=== PATIENT | male | born 1935 | race Caucasian/White ===

== ENCOUNTER 2016-04-21 23:06 | Inpatient (IN) | payer OTHER, MEDICARE ==
[~2016-04-21] VITALS: Ht 134.6 cm; Wt 51.5 kg
[2016-04-21 23:07] VITALS: BP 183/92; PULSE 84; RESP 14; TEMP 98; O2SAT 98
[2016-04-22 02:22] VITALS: BP 172/89; PULSE 65; RESP 16; TEMP 98.4; O2SAT 98
[2016-04-22] MEDS ORDERED: SODIUM CHLORIDE 0.9% FLUSH 5 ML FLUSH IVF PRN (03:15)
[2016-04-22 03:34] LABS: AUTOMATED NEUTROPHIL # 5.2 TH/MM3 (1.8-7.7); BASOPHIL % 0.5 % (0.0-2.0); EOSINOPHIL # 0.2 TH/MM3 (0-0.4); EOSINOPHIL % 2.2 % (0.0-4.0); HEMATOCRIT 37.4 % (39.0-51.0); HEMO FLAGS DIFF FINAL; LYMPH % 19.8 % (9.0-44.0); LYMPHOCYTE # 1.4 TH/MM3 (1.0-4.8); MEAN CORPUSCULAR HEMOGLOBIN 29.6 PG (27.0-34.0); MEAN CORPUSCULAR HGB CONC 33.6 % (32.0-36.0); MONO % 5.7 % (0.0-8.0); NEUT % 71.8 % (16.0-70.0); PLATELET COUNT 328 TH/MM3 (150-450); RED BLOOD COUNT 4.24 MIL/MM3 (4.50-5.90); RED CELL DISTRIBUTION WIDTH 14.3 % (11.6-17.2); WHITE BLOOD COUNT 7.3 TH/MM3 (4.0-11.0)
--- NOTE | 2016-04-22 03:59 | RADRPT ---
EXAM DATE/TIME: 04/22/2016 03:10 [facility] COMPARISON: No previous studies available for comparison. INDICATIONS : Altered mental status. RADIATION DOSE: 56.35 CTDIvol (mGy) MEDICAL HISTORY : Non-responsive. SURGICAL HISTORY : Abdominal aortic aneurysm repair. ENCOUNTER: Initial ACUITY: 1 day PAIN SCALE: Non-responsive LOCATION: cranial TECHNIQUE: Multiple contiguous axial images were obtained of the head. Using automated exposure control and adj ustment of the mA and/or kV according to patient size, radiation dose was kept as low as reasonably a chievable to obtain optimal diagnostic quality images. FINDINGS: Serpiginous gyriform density in the occipital region this may be calcification or petechial hemorrhag e, the former favored. There is patchy moderate diminished attenuation in periventricular and subcort ical white matter. 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 There is no evidence of intracranial mass. There is nothing to suggest acute infarction. The ventricles are symmetric and normal. There is a minimally displaced base of nasal bone fracture which may nonetheless relatively acute. Co rrelation recommended. Sinuses and mastoids are clear. CONCLUSION: Gyriform density in the occipital regions is likely calcification associated with some type of prior insult. Petechial hemorrhage not entirely excluded. Advanced chronic appearing ischemic changes in th e white matter. Trey Francisco MD on April 22, 2016 at 3:53 Board Certified Radiologist. This report was verified electronically.
[2016-04-22 04:00] VITALS: BP 167/83; PULSE 67; RESP 16; O2SAT 98
--- NOTE | 2016-04-22 04:00 | RADRPT ---
EXAM DATE/TIME: 04/22/2016 03:30 [facility] COMPARISON: No previous studies available for comparison. INDICATIONS : Shortness of breath. MEDICAL HISTORY : Unobtainable. SURGICAL HISTORY : Unobtainable. ENCOUNTER: Initial ACUITY: 1 day PAIN SCORE: Non-responsive. LOCATION: Bilateral chest FINDINGS: A single view of the chest demonstrates the lungs to be symmetrically aerated without evidence of mas s, infiltrate or effusion. The cardiomediastinal contours are unremarkable. Osseous structures are intact. CONCLUSION: No acute disease. Trey Francisco MD on April 22, 2016 at 3:58 Board Certified Radiologist. This report was verified electronically.
[2016-04-22 04:03] LABS: ALT (GPT) 30 U/L (12-78); ANION GAP 9 MEQ/L (5-15); AST (GOT) 16 U/L (15-37); BICARBONATE 26.5 MEQ/L (21.0-32.0); BLOOD UREA NITROGEN 29 MG/DL (7-18); CHLORIDE 102 MEQ/L (98-107); GLOMERULAR FILTRATION RATE 52 ML/MIN (>89); POTASSIUM 4.4 MEQ/L (3.5-5.1); SODIUM (NA) 137 MEQ/L (136-145)
[2016-04-22 04:12] LABS: ALKALINE PHOSPHATASE 74 U/L (45-117); TOTAL BILIRUBIN ADULT 0.3 MG/DL (0.2-1.0)
[2016-04-22 04:14] LABS: ACETAMINOPHEN LESS THAN 2.0 MCG/ML (10.0-30.0)
[2016-04-22 05:03] VITALS: RESP 16; O2SAT 99
[2016-04-22 05:20] LABS: BLOOD, URINE NEG (NEG); GLUCOSE,URINE NEG (NEG); HYALINE CAST, URINE 1 /lpf (RARE); KETONE, URINE NEG (NEG); NITRITE,URINE NEG (NEG); PH, URINE 6.5 (5.0-8.5); URINE COLOR LIGHT-YELLOW (YELLW/STRAW)
[2016-04-22 05:27] LABS: AMPHETAMINE, URINE NEG (NEG); BARBITURATES, URINE NEG (NEG); COCAINE, URINE NEG (NEG)
[2016-04-22 05:34] LABS: COMMENT (UR) CATH-CULT NOT IND; CULTURE IF INDICATED CATH CULTURE NOT IND
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
[2016-04-22 09:15] VITALS: BP 153/67; PULSE 80; RESP 16; TEMP 98; O2SAT 98
[2016-04-22] MEDS ORDERED: diphenhydrAMINE HCL 50 MG CAP PO PRN (14:00)
[2016-04-22] MEDS ORDERED: hydrOXYzine HCL 50 MG TAB PO PRN (14:00)
[2016-04-22] MEDS ORDERED: ACETAMINOPHEN 325 MG TAB PO PRN (14:00)
[2016-04-22] MEDS ORDERED: MAGNESIUM HYDROXIDE SUSP 30 ML CUP PO PRN (14:00)
[2016-04-22] MEDS ORDERED: ALUMINUM/MAGNESIUM/SIMETH 30 ML CUP PO PRN (14:00)
--- NOTE | 2016-04-22 14:10 | PD ---
Data Data Last Documented VS Vital Signs Date Time Temp Pulse Resp B/P Pulse Ox O2 Delivery O2 Flow Rate FiO2 04/22/16 09:15 98.0 80 16 153/67 98 Room Air Orders Electrocardiogram (04/22/16 03:03) Ammonia (04/22/16 03:03) Complete Blood Count With Diff (04/22/16 03:03) Comprehensive Metabolic Panel (04/22/16 03:03) Troponin I (04/22/16 03:03) Thyroid Stimulating Hormone (04/22/16 03:03) Urinalysis - C+S If Indicated (04/22/16 03:03) Chest, Single Ap (04/22/16 03:03) Ct Brain W/O Iv Contrast(Rout) (04/22/16 03:03) Blood Glucose (04/22/16 03:03) Ecg Monitoring (04/22/16 03:03) Iv Access Insert/Monitor (04/22/16 03:03) Oximetry (04/22/16 03:03) Sodium Chloride 0.9% Flush (Ns Flush) (04/22/16 03:15) Drug Screen, Random Urine (04/22/16 03:03) Alcohol (Ethanol) (04/22/16 03:03) Salicylates (Aspirin) (04/22/16 03:03) Tylenol (Acetaminophen) (04/22/16 03:03) Cath For Specimen (04/22/16 04:15) Diet Regular Basic (04/22/16 Lunch) Admit To Inpatient Psych (04/22/16 ) Code Status (04/22/16 13:53) Vital Signs (Adult) SHIN.Q12H.E (04/22/16 13:53) Activity Oob Ad Natasha (04/22/16 13:53) Level Of Observation (Psych) (04/22/16 13:53) Diphenhydramine (Benadryl) (04/22/16 14:00) Acetaminophen (Tylenol) (04/22/16 14:00) Magnesium Hydroxide Liq (Milk Of Magnesi (04/22/16 14:00) Al-Mag Hy-Si 40-40-4 Mg/Ml Liq (Mag-Al P (04/22/16 14:00) Hydroxyzine Hcl (Atarax) (04/22/16 14:00) Pt Request For Service (04/22/16 13:53) Consult Hospitalist (04/22/16 ) Consult Psychiatry (04/22/16 ) ^ Other Nursing Orders (04/22/16 13:58) Labs Laboratory Tests Test 04/22/16 04/22/16 04/22/16 02:50 03:25 05:00 White Blood Count 7.3 TH/MM3 Red Blood Count 4.24 MIL/MM3 Hemoglobin 12.5 GM/DL Hematocrit 37.4 % Mean Corpuscular Volume 88.0 FL Mean Corpuscular Hemoglobin 29.6 PG Mean Corpuscular Hemoglobin 33.6 % Concent Red Cell Distribution Width 14.3 % Platelet Count 328 TH/MM3 Mean Platelet Volume 8.4 FL Neutrophils (%) (Auto) 71.8 % Lymphocytes (%) (Auto) 19.8 % Monocytes (%) (Auto) 5.7 % Eosinophils (%) (Auto) 2.2 % Basophils (%) (Auto) 0.5 % Neutrophils # (Auto) 5.2 TH/MM3 Lymphocytes # (Auto) 1.4 TH/MM3 Monocytes # (Auto) 0.4 TH/MM3 Eosinophils # (Auto) 0.2 TH/MM3 Basophils # (Auto) 0.0 TH/MM3 CBC Comment DIFF FINAL Differential Comment Sodium Level 137 MEQ/L Potassium Level 4.4 MEQ/L Chloride Level 102 MEQ/L Carbon Dioxide Level 26.5 MEQ/L Anion Gap 9 MEQ/L Blood Urea Nitrogen 29 MG/DL Creatinine 1.33 MG/DL Estimat Glomerular Filtration 52 ML/MIN Rate Random Glucose 95 MG/DL Calcium Level 9.0 MG/DL Total Bilirubin 0.3 MG/DL Aspartate Amino Transf 16 U/L (AST/SGOT) Alanine Aminotransferase 30 U/L (ALT/SGPT) Alkaline Phosphatase 74 U/L Troponin I LESS THAN 0.02 NG/ML Total Protein 7.0 GM/DL Albumin 3.1 GM/DL Thyroid Stimulating Hormone 2.960 uIU/ML 3rd Gen Salicylates Level LESS THAN 1.7 MG/DL Acetaminophen Level LESS THAN 2.0 MCG/ML Ethyl Alcohol Level LESS THAN 3 MG/DL Ammonia LESS THAN 10 MCMOL/L Urine Color LIGHT-YELLOW Urine Turbidity CLEAR Urine pH 6.5 Urine Specific [place] 1.012 Urine Protein NEG mg/dL Urine Glucose (UA) NEG mg/dL Urine Ketones NEG mg/dL Urine Occult Blood NEG Urine Nitrite NEG Urine Bilirubin NEG Urine Urobilinogen LESS THAN 2.0 MG/DL Urine Leukocyte Esterase NEG Urine RBC LESS THAN 1 /hpf Urine WBC 1 /hpf Urine Hyaline Casts 1 /lpf Microscopic Urinalysis Comment CATH-CULT NOT IND Urine Opiates Screen NEG Urine Barbiturates Screen NEG Urine Amphetamines Screen NEG Urine Benzodiazepines Screen NEG Urine Cocaine Screen NEG Urine Cannabinoids Screen NEG MDM Supervised Visit with [place]: No Narrative Course Patient was under a Chadwick act for aggressive behavior with his in history dementia. Initial workup revealed jar form density now simple region is likely calcification but cannot completely exclude hemorrhage. The overnight doctor spoke with Dr. Sawyer with neurosurgery who recommended MRI to exclude unlikely hemorrhage. MRI is been pending and difficult complete history form. I personally spoke with the , and went over the CT findings. She states that something similar was seen in [facility] again they thought was calcifications. Is able to complete the MRI history form. At that point patient was refusing MRI. I think it's unlikely to be of benefit to the patient, not working on a sedation with take to get an appropriate study, not worth the risks to the patient at this point. I canceled the MRI, patient is medically clear for psychiatric evaluation. Scripts Unable to Obtain Active Prescriptions or Reported Meds Lonnie Ye MD Apr 22, 2016 14:10
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
[2016-04-22 16:03] VITALS: BP 162/88; PULSE 90; RESP 14; TEMP 98.4; O2SAT 98
[2016-04-22] MEDS ORDERED: SODIUM CHLOR 0.9% 1000 ML INJ 1,000 ML IV ONE (17:45)
--- NOTE | 2016-04-22 18:17 | EKG ---
Date Performed: 04/22/2016 Time Performed: 04:57:24 PTAGE: 80 years EKG: Sinus rhythm MARKED LEFT AXIS DEVIATION ANTEROSEPTAL MYOCARDIAL INFARCTION ABNORMAL ECG NO PREVIOUS TRACING DOCTOR: Denny Emerson Interpretating Date/Time 04/22/2016 18:13:25
[2016-04-22 22:00] VITALS: BP 155/82; PULSE 85; RESP 18; O2SAT 97
[2016-04-23 03:00] VITALS: BP 134/78; PULSE 82; RESP 18; O2SAT 97
[2016-04-23 06:38] VITALS: BP 145/78; PULSE 88; RESP 16; O2SAT 98
[2016-04-23 08:43] VITALS: BP 141/86; PULSE 79; RESP 18; O2SAT 100
[2016-04-23 09:20] VITALS: BP 157/81; PULSE 90; RESP 16; O2SAT 95
[2016-04-23 14:01] LABS: AUTOMATED NEUTROPHIL # 6.8 TH/MM3 (1.8-7.7); BASOPHIL # 0.3 TH/MM3 (0-0.2); BASOPHIL % 3.2 % (0.0-2.0); EOSINOPHIL # 0.1 TH/MM3 (0-0.4); EOSINOPHIL % 1.2 % (0.0-4.0); HEMATOCRIT 40.7 % (39.0-51.0); HEMO FLAGS DIFF FINAL; LYMPH % 13.1 % (9.0-44.0); LYMPHOCYTE # 1.1 TH/MM3 (1.0-4.8); MEAN CELL VOLUME 88.4 FL (80.0-100.0); MEAN CORPUSCULAR HGB CONC 33.9 % (32.0-36.0); MONO % 4.5 % (0.0-8.0); PLATELET COUNT 408 TH/MM3 (150-450); RED CELL DISTRIBUTION WIDTH 14.3 % (11.6-17.2); WHITE BLOOD COUNT 8.6 TH/MM3 (4.0-11.0)
[2016-04-23 14:26] LABS: ALKALINE PHOSPHATASE 69 U/L (45-117); ALT (GPT) 27 U/L (12-78); ANION GAP 11 MEQ/L (5-15); AST (GOT) 15 U/L (15-37); BICARBONATE 30.8 MEQ/L (21.0-32.0); BLOOD UREA NITROGEN 18 MG/DL (7-18); CHLORIDE 98 MEQ/L (98-107); GLOMERULAR FILTRATION RATE 46 ML/MIN (>89); POTASSIUM 3.9 MEQ/L (3.5-5.1); SODIUM (NA) 140 MEQ/L (136-145); TOTAL BILIRUBIN ADULT 0.5 MG/DL (0.2-1.0)
[2016-04-23] MEDS ORDERED: cloNIDine HCL 0.1 MG TAB PO PRN (17:45)
[2016-04-23] MEDS ORDERED: TAMSULOSIN HCL 0.4 MG CAP PO ONE (17:45)
[2016-04-23 18:00] VITALS: BP 156/79; PULSE 91; RESP 18; TEMP 97.5; O2SAT 97
--- NOTE | 2016-04-23 18:02 | PD.CONS ---
HPI Service [facility] Consult Requested By Primary Care Physician Unknown Diagnoses: History of Present Illness 80-year-old male with unknown past medical history, apparently taken to [facility] because he was difficult to control at home, and subsequently sent to [place]. Patient seen in psychiatry [facility]. History is severely limited due to disorganized and distractible speech. For what it is worth, patient denies a long list of symptoms, including pain, shortness of breath, headache, nausea, vomiting, constipation, diarrhea. When asked about difficulty urinating, he offers his only non-negative response saying something about making his "unit work". He does denies taking any medications at all. Called contact number, which did not answer, and did not go into voicemail. Review of Systems Full review of systems performed, and patient appears to deny, with the exception of questionable nonnegative response regarding difficulty urinating. Past Family Social History Allergies: Coded Allergies: No Known Allergies (Unverified , 04/21/16) Past Medical History Difficult history. Patient denies any past medical history. Past Surgical History Difficult history. Patient denies any past surgical history. Reported Medications Unknown at this time. Family History Attempted, but patient also denies family history.. Social History Patient emphatically denies smoking, drinking alcohol, drugs. He appears upset that I asked. Physical Exam Vital Signs Vital Signs Date Time Temp Pulse Resp B/P Pulse Ox O2 Delivery O2 Flow Rate FiO2 04/23/16 09:20 90 16 157/81 95 04/23/16 08:43 79 18 141/86 100 Room Air 04/23/16 06:38 88 16 145/78 98 04/23/16 03:00 82 18 134/78 97 Room Air 04/22/16 22:00 85 18 155/82 97 Room Air Physical Exam GENERAL: This is a well-nourished, well-developed patient, in no apparent distress. Walking around in psychiatry unit. He appears alert, pleasant on my exam, however completely disoriented. SKIN: No rashes, ecchymoses or lesions. Cool and dry. Patient does have what appears to be a scab versus small precancerous lesion over the right neck, roughly 3 mm in diameter. No surrounding erythema. HEAD: Atraumatic. Normocephalic. No temporal or scalp tenderness. EYES: Pupils equal round and reactive. Extraocular motions intact. No scleral icterus. No injection or drainage. ENT: Nose without bleeding, purulent drainage or septal hematoma. Throat without erythema, tonsillar hypertrophy or exudate. Uvula midline. Airway patent. NECK: Trachea midline. No JVD or lymphadenopathy. Supple, nontender, no meningeal signs. CARDIOVASCULAR: Regular rate and rhythm without murmurs, gallops, or rubs. RESPIRATORY: Clear to auscultation. Breath sounds equal bilaterally. No wheezes , rales, or rhonchi. GASTROINTESTINAL: Abdomen soft, non-tender, nondistended. No hepato-splenomegaly , or palpable masses. No guarding. MUSCULOSKELETAL: Extremities without clubbing, cyanosis, or edema. No joint tenderness, effusion, or edema noted. No calf tenderness. Negative Homans sign bilaterally. NEUROLOGICAL: Awake and alert. Cranial nerves II through XII intact. Motor and sensory grossly within normal limits. Five out of 5 muscle strength in all muscle groups. Normal speech. Laboratory Laboratory Tests Test 04/23/16 13:45 White Blood Count 8.6 Red Blood Count 4.60 Hemoglobin 13.8 Hematocrit 40.7 Mean Corpuscular Volume 88.4 Mean Corpuscular Hemoglobin 30.0 Mean Corpuscular Hemoglobin 33.9 Concent Red Cell Distribution Width 14.3 Platelet Count 408 Mean Platelet Volume 8.0 Neutrophils (%) (Auto) 78.0 Lymphocytes (%) (Auto) 13.1 Monocytes (%) (Auto) 4.5 Eosinophils (%) (Auto) 1.2 Basophils (%) (Auto) 3.2 Neutrophils # (Auto) 6.8 Lymphocytes # (Auto) 1.1 Monocytes # (Auto) 0.4 Eosinophils # (Auto) 0.1 Basophils # (Auto) 0.3 CBC Comment DIFF FINAL Differential Comment Sodium Level 140 Potassium Level 3.9 Chloride Level 98 Carbon Dioxide Level 30.8 Anion Gap 11 Blood Urea Nitrogen 18 Creatinine 1.49 Estimat Glomerular Filtration 46 Rate Random Glucose 149 Calcium Level 9.0 Total Bilirubin 0.5 Aspartate Amino Transf 15 (AST/SGOT) Alanine Aminotransferase 27 (ALT/SGPT) Alkaline Phosphatase 69 Total Protein 7.9 Albumin 3.4 Result Diagram: 04/23/16 1345 04/23/16 1345 Imaging Last Impressions Head CT 04/22/16 0303 Signed Impressions: Service Date/Time: Friday, April 22, 2016 03:10 - CONCLUSION: Gyriform density in the occipital regions is likely calcification associated with some type of prior insult. Petechial hemorrhage not entirely excluded. Advanced chronic appearing ischemic changes in the white matter. Trey Francisco MD Chest X-Ray 04/22/16 0303 Signed Impressions: Service Date/Time: Friday, April 22, 2016 03:30 - CONCLUSION: No acute disease. Trey Francisco MD Assessment and Plan Assessment and Plan //Psychosis. //Likely with degree of dementia. -Unable to contact family CT head with what appeared to be chronic changes. No history of, or indication of, recent head trauma. -Management as per psychiatry. //Hypertensive. Systolic blood pressures in the 140s to 160s. -Unknown if patient is on blood pressure medications at home. -Added clonidine as needed for systolic blood pressures over 180. -Continue to monitor blood pressure. //Possible acute kidney injury -Creatinine 1.3 on admission, subsequently up to 1.5 on 04/23. -Unknown baseline creatinine -BUN/creatinine ratio is typical of obstruction. Patient gave history that could be indicative of obstruction. -Urinalysis benign. -04/23. Start tamsulosin. -Fena pending -Encourage by mouth fluids. Continue to monitor. //Possible urinary retention. -Patient's history is very difficult to understand. - 04/23 Start Flomax. -Renal ultrasound pending. //possible 3x3mm Scab over the right neck. //Possibility of pre-cancerous skin lesion right neck. -Patient without any insight. We'll continue to monitor. No signs of infection. May need to be followed as outpatient. Prophylaxis. Patient is ambulatory. Discussed Condition With Nurse. Cedric Truong MD Apr 23, 2016 18:02
--- NOTE | 2016-04-23 21:49 | PD.CONS ---
Provisional Diagnosis Admission Date Apr 22, 2016 at 13:58 [place] I. Dementia Alzheimer's type with disturbances of behavior G 30.8 History of Present Illness Service Psychiatry Consult Requested By Psychiatry Reason for Consult 2nd opinion Primary Care Physician Unknown HPI Pt is a 80YOWM admitted to [facility] under a BA by the police. Pt is unable to provide any meaningful hx. He reports that the year is 1925 and the president is Vince. He requires close supervision for safety. Chart reviewed. Review of Systems Psychiatric: COMPLAINS OF: Confusion Past Family Social History Coded Allergies: No Known Allergies (Unverified , 04/21/16) Past Medical History dementia Unable to Obtain Active Prescriptions or Reported Meds Current Medications Medications (Trade) Dose Ordered Sig/Kush Route Start Time Stop Time Status Last Admin (NS Flush) 2 ml UNSCH PRN IVF 04/22/16 03:15 (Benadryl) 50 mg HS PRN PO 04/22/16 14:00 Hold (Tylenol) 650 mg Q4H PRN PO 04/22/16 14:00 (Milk Of Magnesia Liq) 30 ml DAILY PRN PO 04/22/16 14:00 (Mag-Al Plus Susp Liq) 30 ml Q6H PRN PO 04/22/16 14:00 (Atarax) 50 mg Q6H PRN PO 04/22/16 14:00 Hold (Catapres) 0.1 mg Q6H PRN PO 04/23/16 17:45 (Flomax) 0.4 mg DAILY PO 04/24/16 09:00 Family History unknown Social History Patient's Strengths (min. 2) Patient verbal, access to healthcare Physical Exam Vital Signs Vital Signs Date Time Temp Pulse Resp B/P Pulse Ox O2 Delivery O2 Flow Rate FiO2 04/23/16 18:00 97.5 91 18 156/79 97 04/23/16 08:43 Room Air I/O 04/22/16 04/22/16 04/23/16 08:00 16:00 00:00 Intake Total 300 ml Balance 300 ml Mental Status Examination Speech: Hesitant, Circumstantial, Tangential, Other (markedly disorganized) Orientation: Person (vaguely) Memory: Impaired (describe) Thought Process: Other Thought Content: Other (markedly disorganized) Hallucination Type: None Attention and Concentration: Easily Distracted Suicidal Ideation: No Previous Suicide Attempts: No Homicidal Ideation: No (patient did attack his wheelchair) Previous Homicide Attempts: No Insight: Poor Judgement: Poor Affect: Other (slight decreased range and intensity) Mood: Euthymic, Irritable Motor Activity: Normal gait Assessment & Plan Problem List: (1) Dementia of Alzheimer's type with behavioral disturbance ICD Code: G30.8 Assessment & Plan I agree that pt meets BA criteria due to risk of self-neglect. Estimated LOS: days Request HC Surrog/Guard Advoc?: Yes Problem Qualifiers (1) Dementia of Alzheimer's type with behavioral disturbance: Qualified Code: G30.8 - Alzheimer's disease of other onset with behavioral disturbance Latanya Baum MD Apr 23, 2016 21:49
[2016-04-24] MEDS: TAMSULOSIN HCL 0.4 MG CAP PO SCH (08:23)
--- NOTE | 2016-04-24 09:12 | RADRPT ---
EXAM DATE/TIME: 04/24/2016 08:29 [place] COMPARISON: No previous studies available for comparison. INDICATIONS : Increased BUN/creatinine. MEDICAL HISTORY : Altered mental status. Confusion. SURGICAL HISTORY : Unable to obtain. ENCOUNTER: Initial ACUITY: 1 day PAIN SCORE: 0/10 LOCATION: Bilateral flank MEASUREMENTS: RIGHT KIDNEY: 8.8 x 3.6 x 5.0 cm LEFT KIDNEY: 9.8 x 4.3 x 5.3 cm FINDINGS: RIGHT KIDNEY: Renal cortex is normal in thickness and echotexture. No hydronephrosis, stone, or mass. There is an anechoic avascular lesion at the lower pole renal sinus measuring 13 mm. LEFT KIDNEY: Renal cortex is normal in thickness and echotexture. No hydronephrosis, stone, or mass. BLADDER: Within normal limits given the degree of distension. The prostate gland is enlarged measuring 3.9 x 4.0 x 4.0 cm. CONCLUSION: 1. Normal ultrasound appearance of the kidneys. There is a simple lower pole renal sinus cyst measuri ng 13 mm. 2. Mild prostatomegaly. Trey Vee MD on April 24, 2016 at 9:09 Board Certified Radiologist. This report was verified electronically.
--- NOTE | 2016-04-24 09:57 | HHI.PYPN ---
Subjective Remarks Patient was seen and discussed with the staff readiness officer. Reportedly patient has been pleasantly confused and talking about things that doesn't make any sense. He is unable to provide any meaningful history at this time. But he seems been a worried about his granddaughter. Patient admitted to being forgetful but denies any active auditory or visual hallucinations. Denies any suicidal and/ or homicidal ideation intentions or plan. No behavior or management problem reported. Continue with the same treatment. Patient is also worried about his and he became somewhat sad and tearful when he was talking about her Review of Systems Except as stated in HPI: all other systems reviewed are Neg Objective Alert: Yes [place]: Person, Place Mood: Depressed, Other (worried about and grandchildren) Affect: Labile Memory Intact: Recent (impaired), Remote (impaired) Hallucinations: Other (patient denies any active auditory or visual hallucinations) Delusions: Yes Delusion Type: Paranoid Suicidal: Ideation (denies any suicidal ideation intentions or plan) Homicidal: Ideation (denies any homicidal ideation intentions or plan) Insight/Judgement Limited Labs Test 04/23/16 13:45 White Blood Count 8.6 TH/MM3 Red Blood Count 4.60 MIL/MM3 Hemoglobin 13.8 GM/DL Hematocrit 40.7 % Mean Corpuscular Volume 88.4 FL Mean Corpuscular Hemoglobin 30.0 PG Mean Corpuscular Hemoglobin 33.9 % Concent Red Cell Distribution Width 14.3 % Platelet Count 408 TH/MM3 Mean Platelet Volume 8.0 FL Neutrophils (%) (Auto) 78.0 % Lymphocytes (%) (Auto) 13.1 % Monocytes (%) (Auto) 4.5 % Eosinophils (%) (Auto) 1.2 % Basophils (%) (Auto) 3.2 % Neutrophils # (Auto) 6.8 TH/MM3 Lymphocytes # (Auto) 1.1 TH/MM3 Monocytes # (Auto) 0.4 TH/MM3 Eosinophils # (Auto) 0.1 TH/MM3 Basophils # (Auto) 0.3 TH/MM3 CBC Comment DIFF FINAL Differential Comment Sodium Level 140 MEQ/L Potassium Level 3.9 MEQ/L Chloride Level 98 MEQ/L Carbon Dioxide Level 30.8 MEQ/L Anion Gap 11 MEQ/L Blood Urea Nitrogen 18 MG/DL Creatinine 1.49 MG/DL Estimat Glomerular Filtration 46 ML/MIN Rate Random Glucose 149 MG/DL Calcium Level 9.0 MG/DL Total Bilirubin 0.5 MG/DL Aspartate Amino Transf 15 U/L (AST/SGOT) Alanine Aminotransferase 27 U/L (ALT/SGPT) Alkaline Phosphatase 69 U/L Total Protein 7.9 GM/DL Albumin 3.4 GM/DL Vitals/IOs Vital Signs Date Time Temp Pulse Resp B/P Pulse Ox O2 Delivery O2 Flow Rate FiO2 04/23/16 18:00 97.5 91 18 156/79 97 04/23/16 08:43 Room Air Assessment & Plan Problem List: (1) Dementia of Alzheimer's type with behavioral disturbance ICD Code: G30.8 Assessment & Plan Estimated LOS: days Justification for Cont. Inpt. Risk of decompensation at a lower level of care Request HC Surrog/Guard Advoc?: Yes Problem Qualifiers (1) Dementia of Alzheimer's type with behavioral disturbance: Qualified Code: G30.8 - Alzheimer's disease of other onset with behavioral disturbance Titi Barraza MD Apr 24, 2016 09:57
[2016-04-24] MEDS: DONEPEZIL HCL 5 MG TAB PO SCH (10:45)
[2016-04-24] MEDS ORDERED: METO25TA3 PO (15:47)
[2016-04-24] MEDS ORDERED: BENA20TA PO (15:47)
[2016-04-24] MEDS ORDERED: ASPI1TAB69 PO (15:47)
[2016-04-24] MEDS ORDERED: GALA8TAB PO (15:47)
[2016-04-24] MEDS ORDERED: QUET1TAB7 PO (15:47)
[2016-04-24] MEDS: QUEtiapine FUMARATE 100 MG TAB PO SCH (17:34)
[2016-04-24 19:52] VITALS: BP 149/79; PULSE 81; RESP 20; TEMP 97.8; O2SAT 99
[2016-04-25 06:45] VITALS: BP 125/59; PULSE 72; RESP 16; TEMP 98.2; O2SAT 95
[2016-04-25] MEDS: DONEPEZIL HCL 5 MG TAB PO SCH (09:19)
[2016-04-25] MEDS: TAMSULOSIN HCL 0.4 MG CAP PO SCH (09:19)
[2016-04-25] MEDS: QUEtiapine FUMARATE 100 MG TAB PO SCH ×2 (09:19→17:19)
--- NOTE | 2016-04-25 10:33 | HHI.PYPN ---
Subjective Remarks Patient was seen and discussed with the bell staff. Patient remains somewhat confused and worried about his family his and his granddaughter but could be reassured. He is pleasantly confused no behavior or management problem reported. Continue with the same treatment. Denied any suicidal ideation intentions or plan Review of Systems Except as stated in HPI: all other systems reviewed are Neg Psychiatric: COMPLAINS OF: Confusion, Mood changes, Depression Objective Alert: Yes [place]: Person, Place Mood: Depressed, Other (worried about and grandchildren) Affect: Labile Memory Intact: Recent (impaired), Remote (impaired) Hallucinations: Other (patient denies any active auditory or visual hallucinations) Delusions: Yes Delusion Type: Paranoid Suicidal: Ideation (denies any suicidal ideation intentions or plan) Homicidal: Ideation (denies any homicidal ideation intentions or plan) Insight/Judgement Limited Vitals/IOs Vital Signs Date Time Temp Pulse Resp B/P Pulse Ox O2 Delivery O2 Flow Rate FiO2 04/25/16 06:45 98.2 72 16 125/59 95 04/23/16 08:43 Room Air Assessment & Plan Problem List: (1) Dementia of Alzheimer's type with behavioral disturbance ICD Code: G30.8 Assessment & Plan Estimated LOS: days Justification for Cont. Inpt. Risk of decompensation and monitoring of the medication Request HC Surrog/Guard Advoc?: Yes Problem Qualifiers (1) Dementia of Alzheimer's type with behavioral disturbance: Qualified Code: G30.8 - Alzheimer's disease of other onset with behavioral disturbance Titi Barraza MD Apr 25, 2016 10:33
--- NOTE | 2016-04-25 17:12 | HHI.PR ---
Subjective Remarks Follow up HTN and MATT versus CKD. Patient seen ambulating about psych unit, confused but in no acute distress. Patient offers no medical complaints asking when he can go home. Denies SOB, chest pain, N/V/D/C. fevers or chills. Objective Vitals Vital Signs Date Time Temp Pulse Resp B/P Pulse Ox O2 Delivery O2 Flow Rate FiO2 04/25/16 06:45 98.2 72 16 125/59 95 04/24/16 19:52 97.8 81 20 149/79 99 Result Diagram: 04/23/16 1345 04/23/16 1345 Imaging Last Impressions Renal Ultrasound 04/24/16 0000 Signed Impressions: Service Date/Time: Sunday, April 24, 2016 08:29 - CONCLUSION: 1. Normal ultrasound appearance of the kidneys. There is a simple lower pole renal sinus cyst measuring 13 mm. 2. Mild prostatomegaly. Trey Vee MD Head CT 04/22/16302 Signed Impressions: Service Date/Time: Friday, April 22, 2016 03:10 - CONCLUSION: Gyriform density in the occipital regions is likely calcification associated with some type of prior insult. Petechial hemorrhage not entirely excluded. Advanced chronic appearing ischemic changes in the white matter. Trey Francisco MD Chest X-Ray 04/22/16302 Signed Impressions: Service Date/Time: Friday, April 22, 2016 03:30 - CONCLUSION: No acute disease. Trey Francisco MD Objective Remarks GENERAL: This is a well-nourished, well-developed patient, in no apparent distress. Walking around in psychiatry unit. He appears alert, pleasant on my exam, however confused SKIN: No rashes, ecchymoses or lesions. Cool and dry. Patient does have what appears to be a scab versus small precancerous lesion over the right neck, roughly 3 mm in diameter. No surrounding erythema. HEAD: Atraumatic. Normocephalic. No temporal or scalp tenderness. EYES: EOMI. Extraocular motions intact. No scleral icterus. No injection or drainage. CARDIOVASCULAR: Regular rate and rhythm without murmurs, gallops, or rubs. RESPIRATORY: Clear to auscultation. Breath sounds equal bilaterally. No wheezes , rales, or rhonchi. GASTROINTESTINAL: Abdomen soft, non-tender, nondistended. No hepato-splenomegaly , or palpable masses. No guarding. MUSCULOSKELETAL: Extremities without clubbing, cyanosis, or edema. No joint tenderness, effusion, or edema noted. No calf tenderness. Negative Homans sign bilaterally. NEUROLOGICAL: Awake and alert. No focal deficits. Motor and sensory grossly within normal limits. Five out of 5 muscle strength in all muscle groups. A/P Assessment and Plan //Psychosis. //Likely with degree of dementia. CT head with what appeared to be chronic changes. No history of, or indication of, recent head trauma. -Management as per psychiatry. //Hypertensive. Systolic blood pressures in the 120s to 150s. -Unknown if patient is on blood pressure medications at home. -Continue clonidine as needed for systolic blood pressures over 180. -Continue to monitor blood pressure. //Possible acute kidney injury versus CKD -Creatinine 1.3 on admission, subsequently up to 1.5 on 04/23. recheck in AM -Unknown baseline creatinine -BUN/creatinine ratio is typical of obstruction. -Urinalysis benign. -Continue tamsulosin. -Encourage by mouth fluids. Continue to monitor. -Renal ultrasound 04/24/16 Normal ultrasound appearance of the kidneys. There is a simple lower pole renal sinus cyst measuring 13 mm. 2. Mild prostatomegaly. //possible 3x3mm Scab over the right neck. //Possibility of pre-cancerous skin lesion right neck. -No signs of infection. Recommend outpatient follow up with dermatology DVT Prophylaxis. Patient is ambulatory. Discussed with patient and nursing Written by Maria De Jesus Pedraza, acting as scribe for Dr. Melo on 04/25/16 at 17: 10. All or portions of this note were transcribed by scribe [Maria De Jesus Pedraza PA-C]. I, Dr. Rajat Melo personally performed the history, physical exam, and medical decision making; and confirmed the accuracy of the information in the transcribed note. Authenticated by Dr. Rajat Melo on 04/25/16 at 1710. Maria De Jesus Pedraza Apr 25, 2016 17:12 Mima Melo DO Apr 26, 2016 00:11
[2016-04-25 19:02] VITALS: BP 129/68; PULSE 95; RESP 16; TEMP 98.7; O2SAT 98
[2016-04-26 06:24] VITALS: BP 101/57; PULSE 62; RESP 16; TEMP 97.6; O2SAT 97
[2016-04-26 08:16] LABS: BICARBONATE 26.3 MEQ/L (21.0-32.0); POTASSIUM 4.1 MEQ/L (3.5-5.1)
[2016-04-26] MEDS: TAMSULOSIN HCL 0.4 MG CAP PO SCH (08:28)
[2016-04-26] MEDS: QUEtiapine FUMARATE 100 MG TAB PO SCH ×2 (08:29→17:09)
[2016-04-26] MEDS: DONEPEZIL HCL 5 MG TAB PO SCH (08:29)
--- NOTE | 2016-04-26 14:21 | HHI.DS ---
Psychiatry Discharge Summary Inpatient Psychiatric care?: Yes Advance Directive: No Reason Not Provided: unknown advanced directives; pt confused Mental Health AdvanceDirective: No Health Care Proxy: No Admission Admission Date Apr 22, 2016 at 13:58 Admission Diagnosis: (1) Dementia of Alzheimer's type with behavioral disturbance ICD Code: G30.8 GAF Score: 40 Brief History Pt is a 80YOWM admitted to [facility] under a BA by the police. Pt is unable to provide any meaningful hx. He reports that the year is 1925 and the president is Vince. He requires close supervision for safety. Chart reviewed. Tobacco Use In Past 30 Days: Cognitive Impairment Alcohol Use: Monthly or Less Hospital Course Patient was started on supportive treatment. He participated in some of the therapeutic activity on the floor. He was pleasantly confused and repetitious in asking the same question. No behavior or management problem exhibited on the unit. His medication was adjusted he started to feel better and wanting to go back home was willing to take him home and follow-up as an outpatient with home health follow-up he was discharged patient denied any suicidal and/or homicidal ideation intentions of plan Results Blood Pressure 101 / 57 Vital Signs Date Time Temp Pulse Resp B/P Pulse Ox O2 Delivery O2 Flow Rate FiO2 04/26/16 06:24 97.6 62 16 101/57 97 04/23/16 08:43 Room Air Laboratory Tests Test 04/26/16 07:00 Blood Urea Nitrogen 22 MG/DL (7-18) Estimat Glomerular Filtration 59 ML/MIN (>89) Rate Summary of Major Lab Results Nothing significant Summary of Procedures None Imaging Last Impressions Renal Ultrasound 04/24/16 0000 Signed Impressions: Service Date/Time: Sunday, April 24, 2016 08:29 - CONCLUSION: 1. Normal ultrasound appearance of the kidneys. There is a simple lower pole renal sinus cyst measuring 13 mm. 2. Mild prostatomegaly. Trey Vee MD Head CT 04/22/16302 Signed Impressions: Service Date/Time: Friday, April 22, 2016 03:10 - CONCLUSION: Gyriform density in the occipital regions is likely calcification associated with some type of prior insult. Petechial hemorrhage not entirely excluded. Advanced chronic appearing ischemic changes in the white matter. Trey Francisco MD Chest X-Ray 04/22/16302 Signed Impressions: Service Date/Time: Friday, April 22, 2016 03:30 - CONCLUSION: No acute disease. Trey Francisco MD Pending results at discharge: No Medications # of Antipsychotic meds at D/C: 1 Appropriate >1 Antipsych meds?: 2 Approp Antipsych med options 1 - Minimum of three failed multiple trials of monotherapy. Discharge Discharge Date: Apr 26, 2016 Discharge Diagnosis: (1) Dementia of Alzheimer's type with behavioral disturbance Diagnosis: Principal ICD Code: G30.8 Mental Status Exam at Disch Patient was alert oriented 2 pleasantly confused and asking the same question over and over again. He wanted to go home. There was no behavior or aggressive behavior exhibited in the unit. He denied any suicidal and/or homicidal ideation intentions or plan. He wants to go home his also wants him to come home he denied any active auditory or visual hallucinations Pt Condition on Discharge: Stable Discharge Disposition: Discharge Home Discharge Instructions Diet Instructions: As Tolerated, No Restrictions Activities you can perform: Regular-No Restrictions Scheduled Appointment: [facility] Discharge Time <= 30 minutes Discharge/Advance Care Plan Health Problems: (1) Dementia of Alzheimer's type with behavioral disturbance Goals to promote your health * To prevent worsening of your condition and complications * To maintain your health at the optimal level Directions to meet your goals Take your medications as prescribed Follow your dietary instruction Follow activity as directed Keep your appointments as scheduled Take your immunizations and boosters as scheduled If your symptoms worsen call your PCP, if no PCP go to Urgent Care Center or Emergency Room For 11/09 questions related to your inpatient stay or results of tests pending at discharge, please contact Dr. Titi Barraza at Smoking is Dangerous to Your Health. Avoid second hand smoking Problem Qualifiers (1) Dementia of Alzheimer's type with behavioral disturbance: Qualified Code: G30.8 - Alzheimer's disease of other onset with behavioral disturbance Titi Barraza MD Apr 26, 2016 14:21
[2016-04-26] MEDS ORDERED: ARIC5TAB PO (14:23)
[2016-04-26] MEDS ORDERED: QUET1TAB8 PO (14:23)
--- NOTE | 2016-04-26 14:34 | HHI.PR ---
Blank section for building Chart reviewed creatinine improving continue to encourage by mouth fluid intake Patient appears medically stable at this point will sign off. If patient's condition changes or further assistance is needed please reconsult Recommend patient follow up with PCP after discharge (Maria De Jesus Pedraza) Maria De Jesus Pedraza Apr 26, 2016 14:34 Mima Melo DO Apr 26, 2016 23:38
[2016-04-26 18:35] VITALS: BP 140/67; PULSE 85; RESP 16; TEMP 98.4; O2SAT 99
== END 2016-04-26 18:45 | disposition home or self-care (01) | DRG 57 ==
LOC: NEPE 23:06 → NEDA 04-22 13:58 → NEDH 04-23 07:30 → H270 04-23 08:43 → H260 04-23 11:30
PROVIDERS: ADMIT Psychiatry & Neurology Psychiatry; ATTEND Psychiatry & Neurology Psychiatry
DX: G30.9 Alzheimer's disease, unspecified (principal); N17.9 Acute kidney failure, unspecified; F02.81 Dementia in other diseases classified elsewhere, unspecified severity, with behavioral disturbance; I10 Essential (primary) hypertension; R33.9 Retention of urine, unspecified; Z87.891 Personal history of nicotine dependence
CPT/HCPCS: 70450; 71010; 76775; 80048; 80053; 80307; 80320; 81001; 82140; 82570; 84300; 84443; 84484; 85025; 93005; J7030

== ENCOUNTER 2016-05-29 15:42 | Inpatient (IN) | payer OTHER, MEDICARE ==
[~2016-05-29] VITALS: Ht 134.6 cm; Wt 53.3 kg
[~2016-05-29 15:42] MED LIST: ARIC5TAB PO; ASPI1TAB69 PO; BENA20TA PO; GALA8TAB PO; METO25TA3 PO; QUET1TAB7 PO; QUET1TAB8 PO
[2016-05-29 17:01] VITALS: BP 186/96; PULSE 98; RESP 16; TEMP 98; O2SAT 99
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
[2016-05-29 18:22] LABS: AMPHETAMINE, URINE NEG (NEG); BARBITURATES, URINE NEG (NEG); COCAINE, URINE NEG (NEG)
--- NOTE | 2016-05-29 18:24 | RADRPT ---
EXAM DATE/TIME: 05/29/2016 18:00 [facility] COMPARISON: CT BRAIN W/O CONTRAST, April 22, 2016, 3:10. INDICATIONS : Altered mental status. RADIATION DOSE: 33.99 CTDIvol (mGy) MEDICAL HISTORY : Seizures. Cerebrovascular disease. Diabetes mellitus type 2. SURGICAL HISTORY : None. ENCOUNTER: Initial ACUITY: 1 day PAIN SCALE: 3/10 LOCATION: Cranial TECHNIQUE: Multiple contiguous axial images were obtained of the head. Using automated exposure control and adjustment of the mA and/or kV according to patient size, radiation dose was kept as low as reasonably achievable to obtain optimal diagnostic quality images. FINDINGS: The study is abnormal. Apparent gyriform calcifications are seen in both occipital lobe s. Chronic periventricular white matter changes are noted. There are no extra-axial fluid collection s appreciated. Posterior fossa is unremarkable. CONCLUSION: 1. Gyriform calcifications in the occipital lobes bilaterally. 2. Stable in the interval. 3. There is no evidence for an acute process. Ignacio Mercado MD FACR on May 29, 2016 at 18:15 Board Certified Radiologist. This report was verified electronically.
[2016-05-29 18:29] LABS: AUTOMATED NEUTROPHIL # 4.9 TH/MM3 (1.8-7.7); BASOPHIL # 0.1 TH/MM3 (0-0.2); BASOPHIL % 1.2 % (0.0-2.0); EOSINOPHIL % 0.2 % (0.0-4.0); HEMATOCRIT 39.8 % (39.0-51.0); HEMO FLAGS DIFF FINAL; LYMPHOCYTE # 1.5 TH/MM3 (1.0-4.8); MEAN CELL VOLUME 89.8 FL (80.0-100.0); MEAN CORPUSCULAR HEMOGLOBIN 29.8 PG (27.0-34.0); MEAN CORPUSCULAR HGB CONC 33.2 % (32.0-36.0); MONO % 7.3 % (0.0-8.0); NEUT % 70.3 % (16.0-70.0); PLATELET COUNT 247 TH/MM3 (150-450); RED BLOOD COUNT 4.43 MIL/MM3 (4.50-5.90); RED CELL DISTRIBUTION WIDTH 13.9 % (11.6-17.2)
[2016-05-29 18:50] LABS: ANION GAP 11 MEQ/L (5-15); AST (GOT) 20 U/L (15-37); BLOOD UREA NITROGEN 26 MG/DL (7-18); CHLORIDE 105 MEQ/L (98-107); GLOMERULAR FILTRATION RATE 54 ML/MIN (>89); POTASSIUM 3.9 MEQ/L (3.5-5.1); SODIUM (NA) 138 MEQ/L (136-145)
[2016-05-29 18:53] LABS: ALKALINE PHOSPHATASE 63 U/L (45-117); ALT (GPT) 14 U/L (12-78); TOTAL BILIRUBIN ADULT 0.6 MG/DL (0.2-1.0)
[2016-05-29 19:23] LABS: BLOOD, URINE NEG (NEG); COMMENT (UR) CULT NOT INDICATED; CULTURE IF INDICATED CULT NOT INDICATED; GLUCOSE,URINE NEG (NEG); HYALINE CAST, URINE 7 /lpf (RARE); KETONE, URINE TRACE mg/dL (NEG); MUCUS URINE FEW /lpf (OCC); NITRITE,URINE NEG (NEG); SQUAMOUS EPITHELIAL CELL URINE <1 /hpf (0-5); URINE COLOR YELLOW (YELLW/STRAW)
[2016-05-29 19:27] LABS: ACETAMINOPHEN LESS THAN 2.0 MCG/ML (10.0-30.0)
[2016-05-29] MEDS ORDERED: LORazepam 2 MG/ML VIAL IV PUSH ONE (19:45)
[2016-05-29] MEDS ORDERED: SODIUM CHLORID 0.9% 500 ML INJ 500 ML IV ONE (19:45)
[2016-05-29] MEDS ORDERED: ACETAMINOPHEN 500 MG CPLT PO ONE (19:45)
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
[2016-05-29 21:11] VITALS: BP 153/73; PULSE 81; RESP 18; O2SAT 95
[2016-05-29 22:00] VITALS: BP 184/94; PULSE 88; RESP 18; O2SAT 96
[2016-05-29] MEDS ORDERED: ALUMINUM/MAGNESIUM/SIMETH 30 ML CUP PO PRN (22:45)
[2016-05-29] MEDS ORDERED: diphenhydrAMINE HCL 50 MG/ML VIAL IM PRN (22:45)
[2016-05-29] MEDS ORDERED: MAGNESIUM HYDROXIDE SUSP 30 ML CUP PO PRN (22:45)
[2016-05-29] MEDS ORDERED: diphenhydrAMINE HCL 50 MG CAP PO PRN ×2 (22:45)
[2016-05-29] MEDS ORDERED: HALOPERIDOL LACTATE 5 MG/ML AMP IM PRN (22:45)
[2016-05-29] MEDS ORDERED: ACETAMINOPHEN 325 MG TAB PO PRN (22:45)
[2016-05-30] MEDS ORDERED: METOPROLOL TARTRATE 25 MG TAB PO ONE (00:15)
[2016-05-30 00:20] VITALS: BP 185/95; PULSE 80; RESP 18; O2SAT 98
[2016-05-30 00:40] VITALS: BP 183/90; PULSE 72; RESP 18; O2SAT 97; O2SAT 99
[2016-05-30] MEDS: hydrOXYzine HCL 50 MG TAB PO PRN ×2 (03:41→13:50)
[2016-05-30 06:00] VITALS: BP 145/71; PULSE 67; RESP 18; TEMP 96.8; O2SAT 97
[2016-05-30 07:34] LABS: ANION GAP 10 MEQ/L (5-15); BICARBONATE 26.8 MEQ/L (21.0-32.0); BLOOD UREA NITROGEN 24 MG/DL (7-18); CHLORIDE 99 MEQ/L (98-107); GLOMERULAR FILTRATION RATE 59 ML/MIN (>89); HDL CHOLESTEROL 61.6 MG/DL (40.0-60.0); LDL CHOLESTEROL 177 MG/DL (0-99); POTASSIUM 3.5 MEQ/L (3.5-5.1); SODIUM (NA) 136 MEQ/L (136-145)
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
[2016-05-30] MEDS: REMOVE OLD PATCH T-DERMAL SCH (09:00)
[2016-05-30] MEDS ORDERED: NICOTINE 21 MG/24 HR PATCH T-DERMAL SCH (09:00)
[2016-05-30] MEDS: ASPIRIN EC 81 MG TABEC PO SCH (09:22)
[2016-05-30] MEDS: METOPROLOL TARTRATE 25 MG TAB PO SCH ×2 (09:22→21:00)
[2016-05-30] MEDS: LISINOPRIL 20 MG TAB PO SCH (09:22)
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
--- NOTE | 2016-05-30 12:40 | PD.CONS ---
HPI Service [facility] Hospitalists Consult Requested By Psychiatric service Reason for Consult Medical management Primary Care Physician Unknown Diagnoses: History of Present Illness This is a 81 year-old male with a past medical history significant for dementia who presented to [facility] ED under a Chadwick act from the [place] due to increased agitation and aggressiveness towards his spouse. Patient apparently noted he would "cut her head off". Hospitalist service has been consulted for hypertensive medical management. Patient seen and examined today. Difficult to obtain history from patient due to marked confusion and disorganized thought process. As a result, history also obtained from review of patient's computerized medical record. Per psychiatric note, there is some concern that patient's Robina has some degree of cognitive impairment herself and is an unreliable historian. She alleges the patient has been noncompliant with his prescribed psychotropic medications and has become more aggressive. She also alleges patient has been consorting with a prostitute. Patient's daughter, Macarena,[phone] is also available for collateral and is currently residing in the home. Apparently she admits to the fact that her son brings prostitute into the home for his own purposes and that Robina mistakenly believes that the prostitutes are for the patient. In the ED, CT scan of the brain shows no evidence of acute finding. Patient is afebrile. White count is within normal limits. Blood pressure is controlled at 145/71. Tox screen is negative. Urinalysis reveals only trace ketones. Review of Systems Except as stated in HPI: all other systems reviewed are Neg (10 point review of systems attempted but unsuccessful due to patient's severe cognitive deficit) Past Family Social History Allergies: Coded Allergies: No Known Allergies (Unverified , 05/29/16) Past Medical History Dementia Hypertension Past Surgical History Patient denies any previous surgical history but reliability of responses is highly questioned given severe cognitive deficit. Reported Medications Quetiapine 100 Mg Tab25 Mg PO BIDPC 14 Days Ref 1 Prov:Titi Braraza MD 04/26/16 Donepezil (Aricept)5 Mg Tab5 Mg PO DAILY 14 Days Ref 1 Prov:Titi Barraza MD 04/26/16 Galantamine 8 Mg Tab8 Mg PO BID #60 TAB Ref 0 04/24/16 Quetiapine 25 Mg Tab25 Mg PO BID #60 TAB Ref 0 04/24/16 Benazepril 20 Mg Tab20 Mg PO DAILY #30 TAB Ref 0 04/24/16 Aspirin 81 Mg Tabdr81 Mg PO DAILY 04/24/16 Metoprolol Tartrate 25 Mg Tab25 Mg PO BID #60 TAB Ref 0 04/24/16 Active Ordered Medications Current Medications Medications (Trade) Dose Ordered Sig/Kush Route Start Time Stop Time Status Last Admin (Ecotrin Ec) 81 mg DAILY PO 05/30/16 09:00 05/30/16 09:22 (Prinivil) 20 mg DAILY PO 05/30/16 09:00 05/30/16 09:22 (Lopressor) 25 mg BID PO 05/30/16 09:00 05/30/16 09:22 (Benadryl) 25 mg Q6H PRN PO 05/29/16 22:45 (Benadryl Inj) 25 mg Q6H PRN IM 05/29/16 22:45 (Benadryl) 25 mg HS PRN PO 05/29/16 22:45 05/30/16 03:00 (Tylenol) 650 mg Q4H PRN PO 05/29/16 22:45 (Milk Of Magnesia Liq) 30 ml DAILY PRN PO 05/29/16 22:45 (Mag-Al Plus Susp Liq) 30 ml Q6H PRN PO 05/29/16 22:45 (Habitrol 21 Mg Patch.24 Hr) 1 patch DAILY T-DERMAL 05/30/16 09:00 (Atarax) 25 mg Q6H PRN PO 05/29/16 22:45 05/30/16 03:41 Miscellaneous Information 1 DAILY T-DERMAL 05/30/16 09:00 (Haldol Inj) 2 mg Q8H PRN IM 05/29/16 22:45 (Haldol) 0.5 mg BID PO 05/30/16 21:00 (Aricept) 5 mg DAILY PO 05/31/16 09:00 Family History Patient reports family medical history significant for hypertension Social History Patient reports a remote history of tobacco use 45 years ago. He denies any alcohol use or illicit drug use. Physical Exam Vital Signs Vital Signs Date Time Temp Pulse Resp B/P Pulse Ox O2 Delivery O2 Flow Rate FiO2 05/30/16 06:00 96.8 67 18 145/71 97 05/30/16 00:40 72 18 183/90 99 05/30/16 00:40 97 05/30/16 00:20 80 18 185/95 98 Room Air 05/29/16 22:00 88 18 184/94 96 Room Air 05/29/16 21:11 81 18 153/73 95 Room Air 05/29/16 17:01 98.0 98 16 186/96 99 Physical Exam GENERAL: This is a well-nourished, well-developed patient, in no apparent distress. Ambulating in hallway. Awake and alert. Likes to go by the name Frank. SKIN: No rashes, ecchymoses or lesions. Cool and dry. HEAD: Atraumatic. Normocephalic. No temporal or scalp tenderness. EYES: Pupils equal round and reactive. Extraocular motions intact. No scleral icterus. No injection or drainage. ENT: Nose without bleeding, purulent drainage or septal hematoma. Throat without erythema, tonsillar hypertrophy or exudate. Uvula midline. Airway patent. NECK: Trachea midline. No JVD or lymphadenopathy. Supple, nontender, no meningeal signs. CARDIOVASCULAR: Regular rate and rhythm without murmurs, gallops, or rubs. RESPIRATORY: Clear to auscultation. Breath sounds equal bilaterally. No wheezes , rales, or rhonchi. GASTROINTESTINAL: Abdomen soft, non-tender, nondistended. No hepato-splenomegaly , or palpable masses. No guarding. MUSCULOSKELETAL: Extremities without clubbing, cyanosis, or edema. No joint tenderness, effusion, or edema noted. No calf tenderness. NEUROLOGICAL: Awake and alert. Able to move all 4 extremities. Flight of ideas. Disorganized thinking. Laboratory Laboratory Tests Test 05/29/16 05/29/16 05/30/16 17:35 17:45 05:47 Urine Opiates Screen NEG Acetaminophen Level LESS THAN 2.0 Urine Barbiturates Screen NEG Urine Amphetamines Screen NEG Urine Benzodiazepines Screen NEG Urine Cocaine Screen NEG Urine Cannabinoids Screen NEG Ethyl Alcohol Level LESS THAN 3 White Blood Count 7.0 Red Blood Count 4.43 Hemoglobin 13.2 Hematocrit 39.8 Mean Corpuscular Volume 89.8 Mean Corpuscular Hemoglobin 29.8 Mean Corpuscular Hemoglobin 33.2 Concent Red Cell Distribution Width 13.9 Platelet Count 247 Mean Platelet Volume 8.4 Neutrophils (%) (Auto) 70.3 Lymphocytes (%) (Auto) 21.0 Monocytes (%) (Auto) 7.3 Eosinophils (%) (Auto) 0.2 Basophils (%) (Auto) 1.2 Neutrophils # (Auto) 4.9 Lymphocytes # (Auto) 1.5 Monocytes # (Auto) 0.5 Eosinophils # (Auto) 0.0 Basophils # (Auto) 0.1 CBC Comment DIFF FINAL Differential Comment Urine Color YELLOW Urine Turbidity CLEAR Urine pH 5.0 Urine Specific [place] 1.023 Urine Protein TRACE Urine Glucose (UA) NEG Urine Ketones TRACE Urine Occult Blood NEG Urine Nitrite NEG Urine Bilirubin NEG Urine Urobilinogen 2.0 Urine Leukocyte Esterase NEG Urine RBC LESS THAN 1 Urine WBC 3 Urine Squamous Epithelial <1 Cells Urine Hyaline Casts 7 Urine Mucus FEW Microscopic Urinalysis Comment CULT NOT INDICATED Sodium Level 138 136 Potassium Level 3.9 3.5 Chloride Level 105 99 Carbon Dioxide Level 22.0 26.8 Anion Gap 11 10 Blood Urea Nitrogen 26 24 Creatinine 1.29 1.19 Estimat Glomerular Filtration 54 59 Rate Random Glucose 78 88 Calcium Level 9.4 9.2 Total Bilirubin 0.6 Aspartate Amino Transf 20 (AST/SGOT) Alanine Aminotransferase 14 (ALT/SGPT) Alkaline Phosphatase 63 Total Protein 8.2 Albumin 3.8 Salicylates Level LESS THAN 1.7 Triglycerides Level 88 Cholesterol Level 256 LDL Cholesterol 177 HDL Cholesterol 61.6 Cholesterol/HDL Ratio 4.15 Result Diagram: 05/29/16 1745 05/30/16 0547 Imaging Last Impressions Head CT 05/29/16 0000 Signed Impressions: Service Date/Time: Sunday, May 29, 2016 18:00 - CONCLUSION: 1. Gyriform calcifications in the occipital lobes bilaterally. 2. Stable in the interval. 3. There is no evidence for an acute process. Ignacio Mercado MD FACR Assessment and Plan Assessment and Plan 81 year-old male with a past medical history significant for dementia who presented to [facility] ED under a Chadwick act from the [employer] due to increased agitation and aggressiveness towards his spouse. Patient apparently noted he would "cut her head off". Hospitalist service has been consulted for hypertensive medical management. Dementia with worsening agitation and aggression - Management per psychiatric service - Patient resumed on home Aricept and started on Haldol Hypertension - Patient's BP controlled at present - Continue home lisinopril and metoprolol dose - Will continue to monitor BP closely and adjust treatment as indicated. Azotemia in patient with suspected h/o BPH - bolus of fluid ordered - will monitor response - encourage by mouth fluids - am labs ordered - may benefit from addition of Flomax - monitor I&Os DVT prophylaxis - frequent ambulation Written by Blanca Gunter PA-C acting as scribe for Dr. Kunz on 05/30/16 at 12:17. All or portions of this note were transcribed by scribe Blanca OLMSTEAD. I , Dr. Vivian Kunz personally performed the history, physical exam, and medical decision making; and confirmed the accuracy of the information in the transcribed note. Authenticated by Dr. Vivian Kunz on 05/30/16 at 12:17. Blanca Gutner May 30, 2016 12:40 Vivian Kunz MD May 30, 2016 16:29
[2016-05-30] MEDS ORDERED: HALOPERIDOL LACTATE 5 MG/ML AMP IM PRN (15:30)
[2016-05-30] MEDS ORDERED: HALOPERIDOL 0.5 MG TAB PO ONE (15:30)
[2016-05-30 16:31] LABS: HEMOGLOBIN A1a 1.3 %; HEMOGLOBIN A1b 0.9 %; HEMOGLOBIN Ao 84.9 %; HEMOGLOBIN LA1C 1.8 %; HEMOGLOBIN P3 3.9 %
[2016-05-30 19:00] VITALS: BP 166/97; PULSE 97; RESP 18
[2016-05-30] MEDS: HALOPERIDOL 0.5 MG TAB PO SCH (21:24)
[2016-05-31 05:23] VITALS: BP 104/56; PULSE 80; RESP 19; TEMP 97.1
[2016-05-31] MEDS: REMOVE OLD PATCH T-DERMAL SCH (09:00)
[2016-05-31] MEDS: METOPROLOL TARTRATE 25 MG TAB PO SCH (09:28)
[2016-05-31] MEDS: HALOPERIDOL 0.5 MG TAB PO SCH ×2 (09:28→21:05)
[2016-05-31] MEDS: ASPIRIN EC 81 MG TABEC PO SCH (09:28)
[2016-05-31] MEDS: DONEPEZIL HCL 5 MG TAB PO SCH (09:28)
[2016-05-31] MEDS: LISINOPRIL 20 MG TAB PO SCH (09:28)
--- NOTE | 2016-05-31 11:40 | HHI.PYPN ---
Subjective Remarks Patient seen and examined. Chart reviewed. Patient received Haldol PRN at 1am this morning, although it is not clear what behavior was driving need for PRN. He was somewhat anxious yesterday afternoon as documented by LAISHA Cavazos, and he received Haldol PO at that time. Case discussed with nursing staff. On my examination today, patient is calm and pleasant. He remains oriented to person only. No SI or HI voiced. He denies any side effects from medications. Review of Systems ROS Limitations: Poor Historian Except as stated in HPI: all other systems reviewed are Neg Objective Alert: Yes [place]: Person Mood: Calm Affect: Euthymic Memory Intact: Comment (impaired on clinical exam) Hallucinations: Other (no AVH) Delusions: No Delusion Type: Other (no delusional material elicited today) Suicidal: Ideation (no SI) Homicidal: Ideation (no HI) Insight/Judgment Poor Remarks Thought process disorganized. Speech rambling. No hand tremor, no cogwheeling , no hypomimia, no dystonias or dyskinesias noted. Grooming and hygiene fair. Labs Labs reviewed. Vitals/IOs Vital Signs Date Time Temp Pulse Resp B/P Pulse Ox O2 Delivery O2 Flow Rate FiO2 05/31/16 05:23 97.1 80 19 104/56 05/30/16 06:00 97 05/30/16 00:20 Room Air Intake and Output 05/30/16 05/30/16 05/31/16 08:00 16:00 00:00 Intake Total 240 ml 360 ml Balance 240 ml 360 ml Assessment & Plan Problem List: (1) Dementia of Alzheimer's type with behavioral disturbance ICD Code: G30.8 Assessment & Plan Gently titrate oral Haldol to 0.5 mg 3 times daily for agitation/anxiety in setting of dementia. Continue Aricept as ordered. Hospitalist insolvency consultant input noted and appreciated. Continue to monitor on the inpatient unit. Continue other medications and care as ordered. Justification for Cont. Inpt. Impairment in reality construction in the setting of dementia. Medication changes in process. High risk for decompensation in a less restrictive environment. Counselor Terrie has uncovered more disturbing details about patient's home environment as explicated in her notes, and I remain concerned that home-going would represent an unsafe discharge for this patient. Discharge Planning Patient may require placement. I anticipate a 2-3 week length of stay. Request HC Surrog/Guard Advoc?: Yes Problem Qualifiers (1) Dementia of Alzheimer's type with behavioral disturbance: Qualified Code: G30.8 - Alzheimer's disease of other onset with behavioral disturbance Aman Gee MD May 31, 2016 11:40
--- NOTE | 2016-05-31 12:14 | HHI.PR ---
Subjective Remarks Follow-up on patient with hypertension, azotemia and dementia. Patient seen and examined today. Patient reports that he feels well and has no complaints. He has no fever, chills, nausea, vomiting, chest pain or abdominal pain. Denies any difficulty with urination. States that he has no dysuria, good stream, no frequency and good urine output. Patient seems more clear today with less disorganized thinking. Objective Vitals Vital Signs Date Time Temp Pulse Resp B/P Pulse Ox O2 Delivery O2 Flow Rate FiO2 05/31/16 05:23 97.1 80 19 104/56 05/30/16 19:00 97 18 166/97 I/O 05/30/16 05/30/16 05/30/16 05/31/16 05/31/16 05/31/16 07:00 15:00 23:00 07:00 15:00 23:00 Intake Total 240 ml 360 ml Balance 240 ml 360 ml Intake Oral 240 ml Oral Supplement 360 ml # Voids 1 13 2 Result Diagram: 05/29/16 1745 05/30/16 0547 Imaging Last Impressions Head CT 05/29/16 0000 Signed Impressions: Service Date/Time: Sunday, May 29, 2016 18:00 - CONCLUSION: 1. Gyriform calcifications in the occipital lobes bilaterally. 2. Stable in the interval. 3. There is no evidence for an acute process. Ignacio Mercado MD FACR Objective Remarks GENERAL: This is a well-nourished, well-developed patient, in no apparent distress. Ambulating in hallway. Awake and alert. Likes to go by the name Frank. SKIN: No rashes, ecchymoses or lesions. Cool and dry. HEAD: Atraumatic. Normocephalic. EYES: Extraocular motions intact. No scleral icterus. No injection or drainage. CARDIOVASCULAR: Regular rate and rhythm without murmurs, gallops, or rubs. RESPIRATORY: Clear to auscultation. Breath sounds equal bilaterally. No wheezes , rales, or rhonchi. GASTROINTESTINAL: Abdomen soft, non-tender, nondistended. No hepato-splenomegaly , or palpable masses. No guarding. MUSCULOSKELETAL: Extremities without clubbing, cyanosis, or edema. No joint tenderness, effusion, or edema noted. No calf tenderness. NEUROLOGICAL: Awake and alert. Able to move all 4 extremities. Flight of ideas. Disorganized thinking. Medications and IVs Current Medications Medications (Trade) Dose Ordered Sig/Kush Route Start Time Stop Time Status Last Admin (Ecotrin Ec) 81 mg DAILY PO 05/30/16 09:00 05/31/16 09:28 (Prinivil) 20 mg DAILY PO 05/30/16 09:00 Hold 05/31/16 09:28 (Lopressor) 25 mg BID PO 05/30/16 09:00 05/31/16 09:28 (Benadryl) 25 mg Q6H PRN PO 05/29/16 22:45 (Benadryl Inj) 25 mg Q6H PRN IM 05/29/16 22:45 (Benadryl) 25 mg HS PRN PO 05/29/16 22:45 05/30/16 03:00 (Tylenol) 650 mg Q4H PRN PO 05/29/16 22:45 (Milk Of Magnesia Liq) 30 ml DAILY PRN PO 05/29/16 22:45 (Mag-Al Plus Susp Liq) 30 ml Q6H PRN PO 05/29/16 22:45 (Atarax) 25 mg Q6H PRN PO 05/29/16 22:45 05/30/16 13:50 Miscellaneous Information 1 DAILY T-DERMAL 05/30/16 09:00 (Haldol) 0.5 mg BID PO 05/30/16 21:00 05/31/16 09:28 (Aricept) 5 mg DAILY PO 05/31/16 09:00 05/31/16 09:28 (Haldol Inj) 1 mg Q8H PRN IM 05/30/16 15:30 05/31/16 01:00 A/P Assessment and Plan 81 year-old male with a past medical history significant for dementia who presented to [facility] ED under a Chadwick act from the [place] [employer] due to increased agitation and aggressiveness towards his spouse. Patient apparently noted he would "cut her head off". Hospitalist service has been consulted for hypertensive medical management. Dementia with worsening agitation and aggression - Management per psychiatric service - Patient resumed on home Aricept and started on Haldol Hypertension - now hypotensive with BP 104/56 - Hold home lisinopril and metoprolol dose - Will continue to monitor BP closely and adjust treatment as indicated. Azotemia in patient with suspected h/o BPH - bolus of fluid ordered - encourage by mouth fluids - am labs ordered/pending - may benefit from addition of Flomax - monitor I&Os - 15 voids documented under I&Os. Patient denies any urinary complaints. Bladder scan ordered and requested to record findings in chart. DVT prophylaxis - frequent ambulation Written by Blanca Gunter PA-C acting as scribe for Dr. Kunz on 05/31/16 at 10:13. All or portions of this note were transcribed by scribe Blanca OLMSTEAD. I , Dr. Vivian Kunz personally performed the history, physical exam, and medical decision making; and confirmed the accuracy of the information in the transcribed note. Authenticated by Dr. Vivian Kunz on 05/31/16 at 10:13. Blanca Gunter May 31, 2016 12:13 Vivian Kunz MD May 31, 2016 17:16
[2016-05-31 15:20] LABS: BICARBONATE 30.3 MEQ/L (21.0-32.0); POTASSIUM 3.9 MEQ/L (3.5-5.1)
[2016-05-31 18:00] VITALS: BP 162/79; PULSE 81; RESP 18; TEMP 97.6; O2SAT 98
[2016-06-01 05:57] VITALS: BP 118/59; PULSE 63; RESP 16; TEMP 98.1
[2016-06-01 08:43] LABS: BICARBONATE 27.7 MEQ/L (21.0-32.0); POTASSIUM 3.8 MEQ/L (3.5-5.1)
[2016-06-01] MEDS: REMOVE OLD PATCH T-DERMAL SCH (09:00)
[2016-06-01] MEDS: HALOPERIDOL 0.5 MG TAB PO SCH ×3 (09:16→21:35)
[2016-06-01] MEDS: DONEPEZIL HCL 5 MG TAB PO SCH (09:16)
[2016-06-01] MEDS: ASPIRIN EC 81 MG TABEC PO SCH (09:17)
--- NOTE | 2016-06-01 10:23 | HHI.PYPN ---
Subjective Remarks Patient seen and examined. Chart reviewed. Case discussed with nursing staff. Patient has been no behavioral problem per report. Case discussed with counselor who reports that she has liaisoned with the DCF worker on the case, and apparently the family has been under investigation off an on by that agency since 2003. On my examination today, the patient is standing near the unit door. He is somewhat anxious and says that he has to get home to his . He is oriented to person only. He denies side effects from medications. No other issues noted. Review of Systems Except as stated in HPI: all other systems reviewed are Neg Objective Alert: Yes [place]: Person Mood: Anxious (mild) Affect: Blunted Memory Intact: Comment (Remains impaired) Hallucinations: Other (no AVH) Delusions: No Delusion Type: Other (No delusions) Suicidal: Ideation (No SI) Homicidal: Ideation (No HI) Insight/Judgment Poor Remarks No motoric abnormalities noted. Speech within normal limits for rate, tone and volume. Thought process somewhat perseverative on discharge. Labs Test 05/31/16 06/01/16 14:41 07:45 Sodium Level 139 MEQ/L 138 MEQ/L Potassium Level 3.9 MEQ/L 3.8 MEQ/L Chloride Level 102 MEQ/L 104 MEQ/L Carbon Dioxide Level 30.3 MEQ/L 27.7 MEQ/L Anion Gap 7 MEQ/L 6 MEQ/L Blood Urea Nitrogen 20 MG/DL 20 MG/DL Creatinine 1.53 MG/DL 1.20 MG/DL Estimat Glomerular Filtration 44 ML/MIN 58 ML/MIN Rate Random Glucose 95 MG/DL 91 MG/DL Calcium Level 9.6 MG/DL 9.2 MG/DL Labs reviewed. GFR improved today. Vitals/IOs Vital Signs Date Time Temp Pulse Resp B/P Pulse Ox O2 Delivery O2 Flow Rate FiO2 06/01/16 05:57 98.1 63 16 118/59 05/31/16 18:00 98 05/30/16 00:20 Room Air Intake and Output 05/31/16 05/31/16 06/01/16 08:00 16:00 00:00 Intake Total 0 ml 240 ml 480 ml Balance 0 ml 240 ml 480 ml Assessment & Plan Problem List: (1) Dementia of Alzheimer's type with behavioral disturbance ICD Code: G30.8 Assessment & Plan Continue Haldol 0.5mg TID. I do not think patient's anxiety is severe enough at this juncture to adjust meds, but if it worsens we could consider titrating the Haldol. Continue Aricept as ordered. Appreciate hospitalist store sales consultant input. Continue to monitor on the inpatient unit. Continue other medications and care as ordered. Justification for Cont. Inpt. 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 High risk for decompensation in a less restrictive environment. Discharge Planning I remain concerned the patient's home environment is not safe for the patient. I am recommending placement. Request HC Surrog/Guard Advoc?: Yes Problem Qualifiers (1) Dementia of Alzheimer's type with behavioral disturbance: Qualified Code: G30.8 - Alzheimer's disease of other onset with behavioral disturbance Aman Gee MD Jun 01, 2016 10:23
--- NOTE | 2016-06-01 11:16 | HHI.PR ---
Subjective Remarks Follow-up on patient with hypertension, azotemia and dementia. Patient seen and examined today. Patient seen ambulating in the hallways. Patient reports that he feels very well today. He denies any acute medical complaints. He denies any fever, chills, nausea/vomiting, palpitations, dizziness, shortness of breath, cough, chest pain, abdominal pain, dysuria, hesitancy or slow stream. Objective Vitals Vital Signs Date Time Temp Pulse Resp B/P Pulse Ox O2 Delivery O2 Flow Rate FiO2 06/01/16 05:57 98.1 63 16 118/59 05/31/16 18:00 97.6 81 18 162/79 98 I/O 05/31/16 05/31/16 05/31/16 06/01/16 06/01/16 06/01/16 07:00 15:00 23:00 07:00 15:00 23:00 Intake Total 240 ml 480 ml Balance 240 ml 480 ml Intake Oral 240 ml 480 ml # Voids 2 2 1 Result Diagram: 05/29/16 1745 06/01/16 0745 Objective Remarks GENERAL: This is a well-nourished, well-developed patient, in no apparent distress. Ambulating in hallway. Awake and alert. Likes to go by the name Frank. SKIN: No rashes, ecchymoses or lesions. Warm and dry. HEAD: Atraumatic. Normocephalic. EYES: Extraocular motions intact. No scleral icterus. No injection or drainage. CARDIOVASCULAR: Regular rate and rhythm without murmurs, gallops, or rubs. RESPIRATORY: Clear to auscultation. Breath sounds equal bilaterally. No wheezes , rales, or rhonchi. GASTROINTESTINAL: Abdomen soft, non-tender, nondistended. No hepato-splenomegaly , or palpable masses. No guarding. MUSCULOSKELETAL: Extremities without clubbing, cyanosis, or edema. No joint tenderness, effusion, or edema noted. No calf tenderness. NEUROLOGICAL: Awake and alert. Able to move all 4 extremities. No focal neurologic deficits appreciated. Medications and IVs Current Medications Medications (Trade) Dose Ordered Sig/Kush Route Start Time Stop Time Status Last Admin (Ecotrin Ec) 81 mg DAILY PO 05/30/16 09:00 06/01/16 09:17 (Prinivil) 20 mg DAILY PO 05/30/16 09:00 Hold 05/31/16 09:28 (Lopressor) 25 mg BID PO 05/30/16 09:00 Hold 05/31/16 09:28 (Benadryl) 25 mg Q6H PRN PO 05/29/16 22:45 (Benadryl Inj) 25 mg Q6H PRN IM 05/29/16 22:45 (Benadryl) 25 mg HS PRN PO 05/29/16 22:45 05/30/16 03:00 (Tylenol) 650 mg Q4H PRN PO 05/29/16 22:45 (Milk Of Magnesia Liq) 30 ml DAILY PRN PO 05/29/16 22:45 (Mag-Al Plus Susp Liq) 30 ml Q6H PRN PO 05/29/16 22:45 (Atarax) 25 mg Q6H PRN PO 05/29/16 22:45 05/30/16 13:50 Miscellaneous Information 1 DAILY T-DERMAL 05/30/16 09:00 (Aricept) 5 mg DAILY PO 05/31/16 09:00 06/01/16 09:16 (Haldol Inj) 1 mg Q8H PRN IM 05/30/16 15:30 05/31/16 01:00 (Haldol) 0.5 mg DAILY@,,21 PO 05/31/16 13:04 06/01/16 09:16 A/P Assessment and Plan 81 year-old male with a past medical history significant for dementia who presented to [facility] ED under a Chadwick act from the [employer] due to increased agitation and aggressiveness towards his spouse. Patient apparently noted he would "cut her head off". Hospitalist service has been consulted for hypertensive medical management. Dementia with worsening agitation and aggression - Management per psychiatric service - Patient resumed on home Aricept and started on Haldol Hypertension - Home lisinopril and metoprolol dose on hold for low BP. BP 118/59 this morning but patient has elevated measurements in late afternoon/early evening. May consider resuming Metoprolol dose or another agent if systolic continually runs in 170/180s. - Will continue to monitor BP closely and adjust treatment as indicated. MATT on possible CKD - improved - No recorded history of chronic kidney disease - creatinine baseline appears to be 1.19 - creatinine 1.53 yesterday, now 1.20. GFR 58 - encourage by mouth fluids - avoid nephrotoxic agents Azotemia in patient with suspected h/o BPH - improving - encourage by mouth fluids - reportedly patient voiding well - may benefit from addition of Flomax - bladder scan results pending DVT prophylaxis - frequent ambulation Discussed with Dr. Wei and nursing staff Blanca Gunter Jun 01, 2016 11:16
[2016-06-01 19:16] VITALS: BP 129/62; PULSE 79; RESP 18; TEMP 98
[2016-06-02 06:06] VITALS: BP 139/77; PULSE 88; RESP 17; TEMP 97.8; O2SAT 98
[2016-06-02] MEDS: HALOPERIDOL 0.5 MG TAB PO SCH ×3 (08:44→22:17)
[2016-06-02] MEDS: ASPIRIN EC 81 MG TABEC PO SCH (08:44)
[2016-06-02] MEDS: DONEPEZIL HCL 5 MG TAB PO SCH (08:44)
[2016-06-02] MEDS: REMOVE OLD PATCH T-DERMAL SCH (09:00)
[2016-06-02 09:37] LABS: BICARBONATE 28.4 MEQ/L (21.0-32.0); POTASSIUM 3.8 MEQ/L (3.5-5.1)
--- NOTE | 2016-06-02 13:43 | HHI.PYPN ---
Subjective Remarks Patient seen and examined. Chart reviewed. Case discussed with nursing staff and counselor. Per nursing staff, patient has been confused and wandering the halls. On my examination today, the patient presents as quite anxious. He insists that his daughter, or perhaps his granddaughter his report is variable, is gravely ill and that they must be allowed to visit to take him home. Counselor assures me that she has spoken recently with daughter and no such issues were reported. Patient is intrusive and stops me several times on my rounds to raise the issue. No evident side effects from medications. Review of Systems ROS Limitations: Poor Historian Except as stated in HPI: all other systems reviewed are Neg Objective Alert: Yes [place]: Person Mood: Anxious (ongoing) Affect: Blunted Memory Intact: Comment (Impaired) Hallucinations: Other (None) Delusions: Yes Delusion Type: Other (of family members being ill) Suicidal: Ideation (No SI) Homicidal: Ideation (No HI) Insight/Judgment Poor Remarks No motor abnormalities noted. Steady gait and station. Thought process perseverative. Labs Test 06/02/16 08:37 Sodium Level 139 MEQ/L Potassium Level 3.8 MEQ/L Chloride Level 102 MEQ/L Carbon Dioxide Level 28.4 MEQ/L Anion Gap 9 MEQ/L Blood Urea Nitrogen 18 MG/DL Creatinine 1.23 MG/DL Estimat Glomerular Filtration 57 ML/MIN Rate Random Glucose 138 MG/DL Calcium Level 9.4 MG/DL Labs reviewed. Renal function stable. Vitals/IOs Vital Signs Date Time Temp Pulse Resp B/P Pulse Ox O2 Delivery O2 Flow Rate FiO2 06/02/16 06:06 97.8 88 17 139/77 98 05/30/16 00:20 Room Air Intake and Output 06/01/16 06/01/16 06/02/16 08:00 16:00 00:00 Intake Total 540 ml Balance 540 ml Assessment & Plan Problem List: (1) Dementia of Alzheimer's type with behavioral disturbance ICD Code: G30.8 Assessment & Plan Titrate Haldol to 0.75/0.5/0.75mg to target anxiety in setting of dementia. Continue Aricept as ordered. Appreciate hospitalist consultants intern input. Continue other medications and care as ordered. Justification for Cont. Inpt. 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 Medication changes in process. High risk for decompensation in a less restrictive environment. Discharge Planning Placement Request HC Surrog/Guard Advoc?: Yes Problem Qualifiers (1) Dementia of Alzheimer's type with behavioral disturbance: Qualified Code: G30.8 - Alzheimer's disease of other onset with behavioral disturbance Aman Gee MD Jun 02, 2016 13:43
[2016-06-02] MEDS ORDERED: PILL SPLITTER OTHER PRN (15:45)
[2016-06-02 18:00] VITALS: BP 171/85; PULSE 98; RESP 17; TEMP 98.3; O2SAT 96
[2016-06-03] MEDS: REMOVE OLD PATCH T-DERMAL SCH (09:00)
[2016-06-03] MEDS: HALOPERIDOL 0.5 MG TAB PO SCH ×3 (09:29→22:55)
[2016-06-03] MEDS: DONEPEZIL HCL 5 MG TAB PO SCH (09:29)
[2016-06-03] MEDS: ASPIRIN EC 81 MG TABEC PO SCH (09:29)
[2016-06-03] MEDS: METOPROLOL TARTRATE 25 MG TAB PO SCH ×2 (09:54→22:48)
--- NOTE | 2016-06-03 14:43 | HHI.PR ---
Subjective Remarks Follow-up visit HTN, acidemia, dementia. Patient seen today. Reports she is doing well. Discussed with patient regarding elevation of BP possibly related to anxiety but he's been off of his medication. Patient will be restarted on low-dose BP meds. Patient is confused but able to follow most commands. Denies pain and discomfort. Denies SOB/ dyspnea. Denies chest pain, palpitations, headaches, dizziness. Denies fevers, chills, n/v/d. Objective Vitals Vital Signs Date Time Temp Pulse Resp B/P Pulse Ox O2 Delivery O2 Flow Rate FiO2 06/02/16 18:00 98.3 98 17 171/85 96 I/O 06/02/16 06/02/16 06/02/16 06/03/16 06/03/16 06/03/16 07:00 15:00 23:00 07:00 15:00 23:00 Intake Total 0 ml 1200 ml 360 ml 360 ml Output Total 1 ml Balance 0 ml 1200 ml 360 ml 359 ml Intake Oral 0 ml 1200 ml 360 ml 360 ml Output Stool Total 1 ml # Voids 1 2 3 # Bowel Movements 0 Result Diagram: 06/02/16 0837 Imaging Last Impressions Head CT 05/29/16 0000 Signed Impressions: Service Date/Time: Sunday, May 29, 2016 18:00 - CONCLUSION: 1. Gyriform calcifications in the occipital lobes bilaterally. 2. Stable in the interval. 3. There is no evidence for an acute process. Ignacio Mercado MD FACR Objective Remarks GENERAL: This is a well-nourished, well-developed patient, in no apparent distress. SKIN: Warm and dry HEENT: Normocephalic. Pupils equal round and reactive. Nose without bleeding. Airway patent. NECK: Trachea midline. No JVD. Supple. CARDIOVASCULAR: Regular rate and rhythm without murmurs, gallops, or rubs. RESPIRATORY: Clear to auscultation. Breath sounds equal bilaterally. No wheezes , rales, or rhonchi. GASTROINTESTINAL: Abdomen soft, non-tender, nondistended. Bowel Sounds normoactive x4. MUSCULOSKELETAL: Extremities without clubbing, cyanosis, or edema. NEUROLOGICAL: Awake and alert. Confuse. Oriented to self. CORTES. Normal speech. A/P Problem List: (1) Dementia of Alzheimer's type with behavioral disturbance ICD Code: G30.8 Status: Acute (2) HTN (hypertension) ICD Code: I10 Status: Chronic (3) HLD (hyperlipidemia) ICD Code: E78.5 Status: Acute Assessment and Plan 81 year-old male with a past medical history significant for dementia who presented to [facility] ED under a Chadwick act from the [place] [employer] due to increased agitation and aggressiveness towards his spouse. Patient apparently noted he would "cut her head off". Hospitalist service has been consulted for hypertensive medical management. Dementia with worsening agitation and aggression - Management per psychiatric service - Patient resumed on home Aricept and started on Haldol Hypertension - Home lisinopril and metoprolol dose on hold for low BP. BP 118/59 this morning but patient has elevated measurements in late afternoon/early evening. May consider resuming Metoprolol dose or another agent if systolic continually runs in 170/180s. - BP increased to 170s. Restarted metoprolol 25 mg twice a day, with hold parameters - Continue to monitor BP MATT on possible CKD 3 - No recorded history of chronic kidney disease - creatinine baseline appears to be 1.19 - creatinine 1.53 -->1.20 --> 1.23 - encourage by mouth fluids - avoid nephrotoxic agents Azotemia in patient with suspected h/o BPH - improving - encourage by mouth fluids - reportedly patient voiding well - may benefit from addition of Flomax HLD - Discuss and explained elevated LDL and cholesterol levels with patient. Cholesterol 256, LDL 177 - Discuss benefits of being on statin medication, risk factors, side effects. However due to patient's dementia, unable to verbalize any understanding. - Will hold off on starting the patient on statin medication as his age and lack of capacity to understand medication management. - Continue it dietary changes. DVT prophylaxis - frequent ambulation If BP is improved tomorrow, will sign off. Discussed with patient, nursing Written by Quincy Klein, acting as scribe for Dr. Wei on 06/03/16 at 14: 42. This note was transcribed by irvinibmanuel Klein I, Dr. Chioma Wei personally performed the history, physical exam, and medical decision making; and confirmed the accuracy of the information in the transcribed note. Authenticated by Dr. Chioma Wei on 06/03/16 at 14:42. Problem Qualifiers (1) Dementia of Alzheimer's type with behavioral disturbance: Qualified Code: G30.8 - Alzheimer's disease of other onset with behavioral disturbance Quincy Bergeron Jun 03, 2016 14:43 Chioma Wei MD Jun 04, 2016 12:28
--- NOTE | 2016-06-03 17:46 | HHI.PYPN ---
Subjective Remarks Pt seen and discussed with staff. Pt has been confused and wandering on the unit , but is pleasant and cooperative with treatment. No agitation or aggression. NO SI/HI Objective Alert: Yes [place]: Person Mood: Calm Affect: Restricted Memory Intact: Comment (Impaired) Hallucinations: Other (None) Delusions: Yes Delusion Type: Other (bizarre) Suicidal: Ideation (No SI) Homicidal: Ideation (No HI) Insight/Judgment poor Vitals/IOs Vital Signs Date Time Temp Pulse Resp B/P Pulse Ox O2 Delivery O2 Flow Rate FiO2 06/02/16 18:00 98.3 98 17 171/85 96 Intake and Output 06/02/16 06/02/16 06/03/16 08:00 16:00 00:00 Intake Total 0 ml 1200 ml 720 ml Balance 0 ml 1200 ml 720 ml Assessment & Plan Problem List: (1) Dementia of Alzheimer's type with behavioral disturbance ICD Code: G30.8 Assessment & Plan Continue current tx plan. Estimated LOS: days Justification for Cont. Inpt. risk of decompensaiton Request HC Surrog/Guard Advoc?: Yes Problem Qualifiers (1) Dementia of Alzheimer's type with behavioral disturbance: Qualified Code: G30.8 - Alzheimer's disease of other onset with behavioral disturbance Latanya Baum MD Jun 03, 2016 17:46
[2016-06-03 20:00] VITALS: BP 139/66; PULSE 74; TEMP 99; O2SAT 97
[2016-06-04 05:30] VITALS: BP 151/73; PULSE 70; RESP 16; TEMP 97.2
[2016-06-04] MEDS: REMOVE OLD PATCH T-DERMAL SCH (09:00)
[2016-06-04] MEDS: ASPIRIN EC 81 MG TABEC PO SCH (09:00)
[2016-06-04] MEDS: HALOPERIDOL 0.5 MG TAB PO SCH ×3 (09:00→21:00)
[2016-06-04] MEDS: METOPROLOL TARTRATE 25 MG TAB PO SCH ×2 (09:00→21:00)
[2016-06-04] MEDS: DONEPEZIL HCL 5 MG TAB PO SCH (09:00)
[2016-06-04 18:00] VITALS: BP 146/68; PULSE 82; RESP 16; TEMP 97.6; O2SAT 96
--- NOTE | 2016-06-04 18:31 | HHI.PYPN ---
Subjective Remarks Pt seen and discussed with staff. Pt has been confused and wandering today but has not been agitated or aggressive on unit. He is pleasant during interview and oriented to self only. No SI/HI Objective Alert: Yes [place]: Person Mood: Calm Affect: Restricted Memory Intact: Comment (Impaired) Hallucinations: Other (None) Delusions: Yes Delusion Type: Other (bizarre) Suicidal: Ideation (No SI) Homicidal: Ideation (No HI) Insight/Judgment poor Vitals/IOs Vital Signs Date Time Temp Pulse Resp B/P Pulse Ox O2 Delivery O2 Flow Rate FiO2 06/04/16 05:30 97.2 70 16 151/73 06/03/16 20:00 97 Intake and Output 06/03/16 06/03/16 06/04/16 08:00 16:00 00:00 Intake Total 240 ml 240 ml 840 ml Output Total 1 ml Balance 239 ml 240 ml 840 ml Assessment & Plan Problem List: (1) Dementia of Alzheimer's type with behavioral disturbance ICD Code: G30.8 Assessment & Plan Continue current tx plan. Estimated LOS: days Justification for Cont. Inpt. risk of decompensation Request HC Surrog/Guard Advoc?: Yes Problem Qualifiers (1) Dementia of Alzheimer's type with behavioral disturbance: Qualified Code: G30.8 - Alzheimer's disease of other onset with behavioral disturbance Latanya Baum MD Jun 04, 2016 18:31
[2016-06-05 05:30] VITALS: BP 126/65; PULSE 65; RESP 18; TEMP 97.8
[2016-06-05] MEDS: HALOPERIDOL 0.5 MG TAB PO SCH ×3 (08:57→21:39)
[2016-06-05] MEDS: DONEPEZIL HCL 5 MG TAB PO SCH (08:57)
[2016-06-05] MEDS: METOPROLOL TARTRATE 25 MG TAB PO SCH ×2 (08:58→21:39)
[2016-06-05] MEDS: ASPIRIN EC 81 MG TABEC PO SCH (08:58)
[2016-06-05] MEDS: REMOVE OLD PATCH T-DERMAL SCH (09:00)
--- NOTE | 2016-06-05 10:02 | HHI.PYPN ---
Subjective Remarks Patient seen and examined. Chart reviewed. Case discussed with nursing staff who reports that the patient remains confused but cooperative. On my examination today, the patient is calm and pleasant on examination. Anxiety seems less versus before the weekend. Mental status is indeed confused and at patient's recent baseline. Some word finding difficulty. No evidence side effects from medications. Review of Systems ROS Limitations: Poor Historian Except as stated in HPI: all other systems reviewed are Neg (cognitive impairment limits ROS somewhat) Objective Alert: Yes [place]: Person Mood: Calm Affect: Blunted Memory Intact: Comment (Impaired) Hallucinations: Other (no AVH) Delusions: No Delusion Type: Other (no delusions) Suicidal: Ideation (No SI) Homicidal: Ideation (No HI) Insight/Judgment Poor Remarks No abnormal motor movements noted. Labs Labs reviewed. Vitals/IOs Vital Signs Date Time Temp Pulse Resp B/P Pulse Ox O2 Delivery O2 Flow Rate FiO2 06/05/16 05:30 97.8 65 18 126/65 06/04/16 18:00 96 Intake and Output 06/04/16 06/04/16 06/05/16 08:00 16:00 00:00 Intake Total 1080 ml 480 ml Balance 1080 ml 480 ml Assessment & Plan Problem List: (1) Dementia of Alzheimer's type with behavioral disturbance ICD Code: G30.8 Assessment & Plan Continue Haldol and Aricept as ordered. Continue to monitor on the inpatient unit. Continue other medications and care as ordered. Justification for Cont. Inpt. Risk for decompensation in a less restrictive environment. Discharge Planning I have asked a counselor to reach out the patient's family to discuss the possibility of placement. I remain concerned that patient's home environment does not sound ideal, but if patient's family is set against the idea of placement, then we are unlikely to be successful in the effort and may instead consider home with home health. The patient has been cleared for discharge home by DCF per counselor. Request HC Surrog/Guard Advoc?: Yes Problem Qualifiers (1) Dementia of Alzheimer's type with behavioral disturbance: Qualified Code: G30.8 - Alzheimer's disease of other onset with behavioral disturbance Aman Gee MD Jun 05, 2016 10:02
--- NOTE | 2016-06-05 13:06 | HHI.FF ---
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 My clinical findings support the need for the requested home health care services because: Need for psychosocial assistance Impaired cognition/judgement I certify that my clinical findings support that this patient is homebound because: Impaired cognitive ability/safety Need for psychosocial assistance Aman Gee MD Jun 05, 2016 13:06
--- NOTE | 2016-06-05 14:12 | HHI.PR ---
Subjective Remarks Follow-up visit HTN, acidemia, dementia. Patient seen today. Reports she is doing well. Confuse. Able to follow commands. Denies pain and discomfort. Denies SOB/ dyspnea. Denies chest pain, palpitations, headaches, dizziness. Denies fevers, chills, n/v/d. Objective Vitals Vital Signs Date Time Temp Pulse Resp B/P Pulse Ox O2 Delivery O2 Flow Rate FiO2 06/05/16 05:30 97.8 65 18 126/65 06/04/16 18:00 97.6 82 16 146/68 96 I/O 06/04/16 06/04/16 06/04/16 06/05/16 06/05/16 06/05/16 07:00 15:00 23:00 07:00 15:00 23:00 Intake Total 120 ml 1080 ml 480 ml 0 ml Balance 120 ml 1080 ml 480 ml 0 ml Intake Oral 120 ml 1080 ml 480 ml 0 ml # Voids 3 2 2 3 # Bowel Movements 0 0 Result Diagram: 06/02/16 0837 Imaging Last Impressions Head CT 05/29/16 0000 Signed Impressions: Service Date/Time: Sunday, May 29, 2016 18:00 - CONCLUSION: 1. Gyriform calcifications in the occipital lobes bilaterally. 2. Stable in the interval. 3. There is no evidence for an acute process. Ignacio Mercado MD FACR Objective Remarks GENERAL: This is a well-nourished, well-developed patient, in no apparent distress. SKIN: Warm and dry HEENT: Normocephalic. Pupils equal round and reactive. Nose without bleeding. Airway patent. NECK: Trachea midline. No JVD. Supple. CARDIOVASCULAR: Regular rate and rhythm without murmurs, gallops, or rubs. RESPIRATORY: Clear to auscultation. Breath sounds equal bilaterally. No wheezes , rales, or rhonchi. GASTROINTESTINAL: Abdomen soft, non-tender, nondistended. Bowel Sounds normoactive x4. MUSCULOSKELETAL: Extremities without clubbing, cyanosis, or edema. NEUROLOGICAL: Awake and alert. Confuse. Oriented to self. CORTES. Normal speech. A/P Problem List: (1) Dementia of Alzheimer's type with behavioral disturbance ICD Code: G30.8 Status: Acute (2) HTN (hypertension) ICD Code: I10 Status: Chronic (3) HLD (hyperlipidemia) ICD Code: E78.5 Status: Acute Assessment and Plan 81 year-old male with a past medical history significant for dementia who presented to [facility] ED under a Chadwick act from the [place] [employer] due to increased agitation and aggressiveness towards his spouse. Patient apparently noted he would "cut her head off". Hospitalist service has been consulted for hypertensive medical management. Dementia with worsening agitation and aggression - Management per psychiatric service - Patient resumed on home Aricept and started on Haldol Hypertension - Restarted metoprolol 25 mg twice a day. Continue to hold lisinopril home medication. - If blood pressure remains within normal with just metoprolol 25 mg twice a day, recommend to DC patient without the lisinopril. MATT on possible CKD 3 - No recorded history of chronic kidney disease - creatinine baseline appears to be 1.19 - creatinine 1.53 -->1.20 --> 1.23 - encourage by mouth fluids - avoid nephrotoxic agents Azotemia in patient with suspected h/o BPH - improving - encourage by mouth fluids - reportedly patient voiding well - may benefit from addition of Flomax HLD - Discuss and explained elevated LDL and cholesterol levels with patient. Cholesterol 256, LDL 177 - Discuss benefits of being on statin medication, risk factors, side effects. However due to patient's dementia, unable to verbalize any understanding. - Will hold off on starting the patient on statin medication as his age and lack of capacity to understand medication management. - Continue it dietary changes. DVT prophylaxis - frequent ambulation Discussed with patient, nursing Stable from Hospitalist standpoint. We will sign off. Reconsult as needed. Written by Quincy Klein, acting as scribe for Dr. Wei on 06/05/16 at 16: 12. This note was transcribed by scribmanuel Klein. I, Dr. Chioma Wei personally performed the history, physical exam, and medical decision making; and confirmed the accuracy of the information in the transcribed note. Authenticated by Dr. Chioma Wei on 06/05/16 at 16:12. Problem Qualifiers (1) Dementia of Alzheimer's type with behavioral disturbance: Qualified Code: G30.8 - Alzheimer's disease of other onset with behavioral disturbance Quincy Bergeron Jun 05, 2016 14:12 Chioma Wei MD Jun 05, 2016 16:28
[2016-06-05 19:52] VITALS: BP 144/67; PULSE 63; RESP 18; TEMP 98.2; O2SAT 96
[2016-06-06 05:28] VITALS: BP 160/72; PULSE 61; RESP 17; TEMP 97.7; O2SAT 97
[2016-06-06] MEDS: HALOPERIDOL 0.5 MG TAB PO SCH ×2 (08:59→12:33)
[2016-06-06] MEDS: METOPROLOL TARTRATE 25 MG TAB PO SCH (08:59)
[2016-06-06] MEDS: DONEPEZIL HCL 5 MG TAB PO SCH (08:59)
[2016-06-06] MEDS: ASPIRIN EC 81 MG TABEC PO SCH (08:59)
[2016-06-06] MEDS: REMOVE OLD PATCH T-DERMAL SCH (09:00)
[2016-06-06] MEDS ORDERED: HALO0.5T PO (13:28)
[2016-06-06] MEDS ORDERED: ARIC5TAB PO (13:28)
--- NOTE | 2016-06-06 14:33 | HHI.DS ---
Psychiatry Discharge Summary Inpatient Psychiatric care?: Yes Advance Directive: No Reason Not Provided: none Mental Health AdvanceDirective: No Health Care Proxy: No Admission Admission Date May 29, 2016 at 22:25 Admission Diagnosis: (1) Dementia of Alzheimer's type with behavioral disturbance ICD Code: G30.8 Brief History Mr. Rhodes is a 81-year-old male with a history of dementia who presents to us under a Chadwick act from [employer] alleging that patient's told officers that the patient was yelling and arguing with her and at one point allegedly said that he would cut her head off. Reviewing the electronic medical record, I see the patient was admitted under Dr. Barraza in April of this year. Patient seen and examined. Chart reviewed. Case discussed with nursing staff who reports that the patient was noted to be wandering and exit seeking on nights last evening and was also somewhat aggressive with staff. His sleep was reportedly poor. On my examination today, the patient presents as markedly confused, see full mental status testing below. Thought process is disorganized , I suspect as a consequence of cognitive impairment, and some of his speech does not make much sense and boarders at times on word salad. At other times, his speech is somewhat more coherent. The patient has no recollection of the alleged episode that brought him into the hospital. He denies any suicidal or homicidal ideation at this time. He does not describe any visual hallucinations but does report possibly some auditory hallucinations saying "yeah, it is funny but it's comprehensible. They come around. I didn't mention anything to you but they quashed the water." No willie delusions elicited. No mood symptoms elicited. Psychiatric interview is limited because of the patient's cognitive impairment. I am unable to obtain any meaningful past psychiatric, family, chemical dependency or social history from the patient because of his degree of cognitive impairment. I note that the patient is unable to provide even some autobiographical details such as work history and level of education among others that are often preserved into advanced dementia. I did obtain collateral from patient's , Robina over the phone. In discussing the matter with her, I am concerned that Robina herself has some degree of cognitive impairment and is an unreliable historian. The collateral that she provides is quite confused. From what I can gather, she alleges that the patient has been nonadherent with his prescribed psychotropics and has been more aggressive lately. She also alleges that the patient has been consorting with a prostitute. Patient's daughter, Macarena, is also available for collateral. She notes that she has been living in the home with her parents since patient was discharged from hospital in April. She does say that Robina has some degree of cognitive impairment. Macarena notes that Macarena's son brings prostitutes into the home for his own purposes and Robina mistakenly believes that these prostitutes are there for patient. Macarena denies the allegations in the Chadwick Act. She does note that her father has been somewhat aggressive in his confused state and occasionally issues threats, but this occurs chiefly when Robina is accusing him of being with prostitutes. Macarena does note that patient does not take his prescribed psychotropics. Macarena plans to reside in the home going forward. Tobacco Use In Past 30 Days: No Tobacco Past 30 Days Alcohol Use: Never Hospital Course Patient was admitted to a locked, inpatient psychiatric unit. A general medical consultation was obtained. Appropriate precautions were in place throughout patient's hospital stay. Patient was seen and examined daily on the unit by psychiatry and also visited by counselor. Medications were adjusted. Patient tolerated medications well without side effects. Patient had improvement in his presenting psychiatric symptomatology during the course of his hospital stay. There was no evidence of any suicidality or homicidality on the inpatient unit. Behavior improved with benefit of psychopharmacologic treatment. On the day of discharge: Patient seen and examined. Chart reviewed. Case discussed with nursing staff, counselor and occupational therapist in treatment team. No behavioral issues noted. On my examination today, patient is calm and pleasant. He remains at his confused baseline. He denies any suicidal or homicidal ideation, intent or plan. He denies any audiovisual hallucinations and I can elicit no delusional beliefs. He denies any side effects from medications. He has no physical complaints. He is eager to return home with his . He is accepting of a home health referral. Weighing the acute, chronic, and protective factors and based on the available evidence, I court of appeals judge to a reasonable degree of medical certainty that the patient is at low imminent risk of harm to self or others from a mental illness as defined a Chadwick act and his level of function is adequate for outpatient care. There likely is a component of chronic risk for behavioral disturbance related to his dementia diagnosis but this would not be improved by a longer inpatient psychiatric hospital stay. The patient has maximized benefit from this inpatient psychiatric hospital stay will be discharged home today with home health care. Patient is to follow-up psychiatrically as arranged by counselor. Patient is also to follow-up with primary care. I have ordered that both of patient's antihypertensives be resumed on an outpatient basis as his blood pressure is trending up somewhat. Patient to return to the psychiatric emergency room for any concerning psychiatric symptoms. Results Blood Pressure 160 / 72 Vital Signs Date Time Temp Pulse Resp B/P Pulse Ox O2 Delivery O2 Flow Rate FiO2 06/06/16 05:28 97.7 61 17 160/72 97 Item Value Date Time White Blood Count 7.0 TH/MM3 05/29/16 1745 Hemoglobin 13.2 GM/DL 05/29/16 1745 Platelet Count 247 TH/MM3 05/29/16 1745 Sodium Level 139 MEQ/L 06/02/16 0837 Potassium Level 3.8 MEQ/L 06/02/16 0837 Chloride Level 102 MEQ/L 06/02/16 0837 Carbon Dioxide Level 28.4 MEQ/L 06/02/16 0837 Blood Urea Nitrogen 18 MG/DL 06/02/16 0837 Creatinine 1.23 MG/DL 06/02/16 0837 Random Glucose 138 MG/DL H 06/02/16 0837 Aspartate Amino Transf (AST/SGOT) 20 U/L 05/29/16 1745 Alanine Aminotransferase (ALT/SGPT) 14 U/L 05/29/16 1745 Alkaline Phosphatase 63 U/L 05/29/16 1745 Urine Opiates Screen NEG 05/29/16 1735 Urine Barbiturates Screen NEG 05/29/16 1735 Urine Amphetamines Screen NEG 05/29/16 1735 Urine Benzodiazepines Screen NEG 05/29/16 1735 Urine Cocaine Screen NEG 05/29/16 1735 Urine Cannabinoids Screen NEG 05/29/16 1735 Ethyl Alcohol Level LESS THAN 3 MG/DL 05/29/16 1735 Summary of Procedures None done. Imaging Last Impressions Head CT 05/29/16 0000 Signed Impressions: Service Date/Time: Sunday, May 29, 2016 18:00 - CONCLUSION: 1. Gyriform calcifications in the occipital lobes bilaterally. 2. Stable in the interval. 3. There is no evidence for an acute process. Ignacio Mercado MD FACR Pending results at discharge: No Medications # of Antipsychotic meds at D/C: 1 Approp Antipsych med options 1 - Minimum of three failed multiple trials of monotherapy. 2 - Documented plan to taper to monotherapy due to previous use of multiple meds OR cross-taper in progress at D/C. 3 - Documentation of augmentation of Clozapine. 4 - Justification other than those listed in allowable values 1-3, document here : Discharge Discharge Date: Jun 06, 2016 Discharge Diagnosis: (1) Dementia of Alzheimer's type with behavioral disturbance Diagnosis: Principal (behavioral disturbance resolved) ICD Code: G30.8 GAF on discharge is 50, decreased secondary to cognitive impairment Mental Status Exam at Disch Patient is casually dressed. He is well groomed. He is maintaining basic hygiene. He is awake and alert and oriented to person only. No motor abnormalities noted. No hand tremor, no dystonia, dyskinesia. Steady gait and station. Speech is within normal limits for rate, tone and volume. Memory is impaired at language and fund of knowledge seems reduced. Mood is fair and affect is full and reactive. Thought process somewhat scattered consistent with his dementia diagnosis. No willie delusional material. Denies audiovisual hallucinations. Denies suicidal or homicidal ideation, intent or plan. Insight and judgment are likely chronically poor related to cognitive impairment. Pt Condition on Discharge: Stable Discharge Disposition: Disch w/ Home Health Serv Discharge Instructions Diet Instructions: As Tolerated, No Restrictions Activities you can perform: Weight Bearing as Maria Eugenia Scheduled Appointment: Tom Machado Appointment Date: Jun 13, 2016 Appointment Time: 7:30am New Medications: Haloperidol (Haloperidol) 0.5 Mg Tab 0.5 MG PO DIRECTED 0.75mg PO qAM, 0.5mg PO qNoon, 0.75mg PO qHS. Mental Health Days 15 Ref 1 TAB Continued Medications: Aspirin (Aspirin) 81 Mg Tabdr 81 MG PO DAILY TAB Benazepril (Benazepril) 20 Mg Tab 20 MG PO DAILY Blood Pressure Management #30 Ref 0 TAB Donepezil (Aricept) 5 Mg Tab 5 MG PO DAILY Mental Health Days 15 Ref 1 TAB (This prescription has been renewed) Metoprolol Tartrate (Metoprolol Tartrate) 25 Mg Tab 25 MG PO BID #60 Ref 0 TAB Discontinued Medications: Galantamine (Galantamine) 8 Mg Tab 8 MG PO BID Alzheimer's Dementia #60 Ref 0 TAB Quetiapine (Quetiapine) 25 Mg Tab 25 MG PO BID #60 Ref 0 TAB Quetiapine (Quetiapine) 100 Mg Tab 25 MG PO BIDPC hallucinations Days 14 Ref 1 TAB Discharge Time > 30 minutes Discharge/Advance Care Plan Health Problems: (1) Dementia of Alzheimer's type with behavioral disturbance Goals to promote your health * To prevent worsening of your condition and complications * To maintain your health at the optimal level Directions to meet your goals Take your medications as prescribed Follow your dietary instruction Follow activity as directed Keep your appointments as scheduled Take your immunizations and boosters as scheduled If your symptoms worsen call your PCP, if no PCP go to Urgent Care Center or Emergency Room For 11/09 questions related to your inpatient stay or results of tests pending at discharge, please contact Dr. Aman Gee at Smoking is Dangerous to Your Health. Avoid second hand smoking Problem Qualifiers (1) Dementia of Alzheimer's type with behavioral disturbance: Qualified Code: G30.8 - Alzheimer's disease of other onset with behavioral disturbance Aman Gee MD Jun 06, 2016 14:33
== END 2016-06-06 16:10 | disposition home health service (06) | DRG 57 ==
LOC: NEPE 15:42 → NEDA 22:25 → H250 05-30 00:40
PROVIDERS: ADMIT Psychiatry & Neurology Psychiatry; ATTEND Psychiatry & Neurology Psychiatry
DX: G30.9 Alzheimer's disease, unspecified (principal); N17.9 Acute kidney failure, unspecified; E87.2 Acidosis; F02.81 Dementia in other diseases classified elsewhere, unspecified severity, with behavioral disturbance; Z91.19 Patient's noncompliance with other medical treatment and regimen; I10 Essential (primary) hypertension; F29 Unspecified psychosis not due to a substance or known physiological condition; E78.5 Hyperlipidemia, unspecified; N40.0 Benign prostatic hyperplasia without lower urinary tract symptoms; Z79.899 Other long term (current) drug therapy; F41.9 Anxiety disorder, unspecified; Z87.891 Personal history of nicotine dependence
CPT/HCPCS: 70450; 80048; 80053; 80061; 80307; 81001; 83036; 85025; 96374; 96375; J1630; J2060; J7040; Q0163